=== PATIENT | male | born 1940 | race Caucasian/White ===

== ENCOUNTER 2017-02-26 12:23 | Inpatient (IN) | payer OTHER ==
[~2017-02-26] VITALS: Ht 188 cm; Wt 75.0 kg
[~2017-02-26 12:23] MED LIST: ASPI325T39 PO; ATOR-26 PO; CALC0.2510 PO; GABA-112 PO; HYDR-5688 PO; LEVO75TA PO; LOSA100T65 PO; NTRGSL/4 UT; PRLSR20 PO; SIMV80TA2 PO; SODI650T8 PO
--- NOTE | 2017-02-26 13:06 | EMERGENCY ROOM VISIT NOTE ---
History Report prepared by Jessika: Zohra Feldman Under the Supervision of: Dr. Robert Edmonds M.D. 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 He was walking up short steps and slipped and fell. He landed on the ground and hit his face off of the ground. Daughter states that he had a nosebleed that resolved [employer]. He has been having left shoulder pain and notes that he could not lift his left arm prior to the fall but that the pain has worsened. Movement exacerbates his pain. He describes his pain as "sore" and rates it as a 10/10 in severity. Patient also reports his right wrist has been in pain for 2 days, which is preventing him from gripping his hand. He denies pain in his right hand. He is right hand dominant. The patient is wearing a brace on his left wrist due to arthritis. He was diagnosed with shingles in September that is continuing to cause him pain on the right side of his head. Patient denies LOC, facial pain, jaw pain, neck pain, vision changes, shortness of breath, chest pain, fever, headache, and rash. He denies any recent tick bites. 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 All other systems reviewed were negative unless otherwise stated in history. At least 10 were reviewed Past Medical & Surgical Medical Problems: (1) Fever (2) HLD (hyperlipidemia) (3) HTN (hypertension) (4) Leukocytosis (5) Thyroid disease Social History Smoking Status: Former Smoker Alcohol Use: none Drug Use: none Marital Status: single Housing Status: lives alone Occupation Status: retired Current/Historical Medications Scheduled Aspirin (Aspirin Ec), 81 MG PO DAILY Atorvastatin (Lipitor), 80 MG PO DAILY Calcitriol (Rocaltrol Cap), 0.25 MCG PO DAILY Gabapentin (Neurontin), 100 MG PO TID Levothyroxine Sodium (Synthroid), 75 MCG PO DAILY Losartan Potassium (Cozaar), 100 MG PO DAILY Omeprazole (Prilosec), 20 MG PO DAILY Sodium Bicarbonate (Sodium Bicarbonate), 1 TAB PO TID Scheduled PRN Hydrocodone/Acetaminophen 5MG/325MG ([place] 5MG/325MG), 1 TABLET PO Q6 PRN for Pain Nitroglycerin (Nitrostat), 0.4 MG UT UD PRN for Chest Pain Allergies Coded Allergies: No Known Allergies (Unverified , 07/11/10) Physical Exam Vital Signs Date Time Temp Pulse Resp B/P (MAP) Pulse Ox O2 Delivery O2 Flow Rate FiO2 02/26/17 15:34 80 16 125/80 96 Room Air 02/26/17 14:40 95 Room Air 02/26/17 13:43 37.0 92 16 111/77 95 Room Air 02/26/17 12:28 38.2 68 20 102/55 93 Room Air Physical Exam General: Non-ill appearing older male in no acute distress. HEENT: Normal cephalic atraumatic. Pupils are equal round and reactive to light. Extraocular movements are intact. Oropharynx is pink with moist mucous membranes and full plates. No swelling of the mouth lips or tongue. Neck: Supple with a midline trachea. No meningeal signs or stiffness, no JVD or bruits. No Stridor. Chest: Clear to auscultation bilaterally. No wheezes or rhonchi. No increased work of breathing. Heart: regular rate and rhythm. Abdomen: Soft nontender, nondistended without rebound guarding or rigidity. Extremities: Left shoulder lifts about 90 degrees and stops secondary to pain. Right wrist is tender without redness or warmth. Spine/Back. Non tender to palpation. No CVA tenderness Skin: Good turgor without rashes. Neurologic exam: Cranial nerves two through 12 are intact. Motor and sensation are intact and symmetrical throughout. Medical Decision & Procedures ER Provider Diagnostic Interpretation: Radiology results as stated below per my review and radiologist interpretation: R WRIST MIN 3 VIEWS ROUTINE CLINICAL HISTORY: Right wrist pain status post trauma COMPARISON: None DISCUSSION: No acute fractures are visualized. There are prominent soft tissue calcifications adjacent to the ulna and to a lesser extent the distal radius. There are small cysts/erosions present within the capitate navicular and lunate. There are arterial calcifications present. IMPRESSION: 1. No acute fractures 2. Prominent soft tissue calcifications adjacent to the ulna and distal radius 3. Cysts/erosions within the capitate, navicular, and lunate. Electronically signed by: Homer Gonzalez M.D. 02/26/2017 1:20 PM Dictated Date/Time: 02/26/2017 1:18 PM L SHOULDER MIN 2 VIEWS ROUTINE CLINICAL HISTORY: Left shoulder pain status post trauma COMPARISON: None. DISCUSSION: There are advanced arthritic changes involving the acromioclavicular joint. No acute fractures or subluxations of the proximal left humerus are visualized. IMPRESSION: 1. No acute fractures or subluxations 2. Advanced arthritic changes involving the acromioclavicular joint Electronically signed by: Homer Gonzalez M.D. 02/26/2017 1:18 PM Dictated Date/Time: 02/26/2017 1:[address] HEAD WITHOUT CONTRAST (CT) CLINICAL HISTORY: Head pain status post trauma COMPARISON STUDY: No previous studies for comparison. TECHNIQUE: Axial CT of the brain is performed from the vertex to the skull base. IV contrast was not administered for this examination. A dose lowering technique was utilized adhering to the principles of ALARA. CT DOSE: FINDINGS: No intra or extra-axial mass lesions are visualized. There is no CT evidence of acute cortical infarction. There is no evidence of midline shift. There is no acute hemorrhage. No calvarial fractures are visualized. There are patchy white matter hypodensities likely on a small vessel basis. There is no evidence of pathologic ventricular dilatation. There is no evidence of acute sinusitis IMPRESSION: No acute intracranial findings Electronically signed by: Homer Gonzalez M.D. 02/26/2017 1:45 PM Dictated Date/Time: 02/26/2017 1:44 PM CHEST ONE VIEW PORTABLE CLINICAL HISTORY: Atypical chest pain COMPARISON STUDY: 07/11/2010 FINDINGS: The heart is mildly enlarged. There is aortic tortuosity. There is no failure. There is no focal pulmonary consolidation. There is minor basilar interstitial thickening. Moderate arthritic changes are present within both the chromic clavicular joint.[ IMPRESSION: Cardiomegaly. No evidence of focal pulmonary consolidation. Electronically signed by: Homer Gonzalez M.D. 02/26/2017 1:17 PM Dictated Date/Time: 02/26/2017 1:[address] OF THE CERVICAL SPINE CLINICAL HISTORY: Neck pain status post trauma COMPARISON STUDY: No previous studies for comparison. CT DOSE: 979.12 mGy.cm TECHNIQUE: CT scan of the cervical spine was performed from the skull base to the thoracic inlet. Images are reviewed in the axial, sagittal, and coronal planes. IV contrast was not administered for this examination. A dose lowering technique was utilized adhering to the principles of ALARA. FINDINGS: The visualized portions of the lung apices reveal no evidence of pneumothorax. The prevertebral soft tissues are normal. No fractures or subluxations are visualized. There are advanced multilevel degenerative changes with exuberant anterior osteophytes. There also multilevel posterior osteophytes most pronounced at the C4-5 and C5-6 levels. There is partial fusion of the C5 and C6 vertebra. IMPRESSION: 1. Degenerative changes with exuberant osteophytes 2. No acute fractures or traumatic subluxations identified. Electronically signed by: Homer Gonzalez M.D. 02/26/2017 1:49 PM Dictated Date/Time: 02/26/2017 1:47 PM Laboratory Results 02/26/17 12:55 Red Blood Count 4.76, Mean Corpuscular Volume 87.8, Mean Corpuscular Hemoglobin 30.0, Mean Corpuscular Hemoglobin Concent 34.2, Mean Platelet Volume 9.6, Neutrophils (%) (Auto) 89.4, Lymphocytes (%) (Auto) 4.8, Monocytes (%) (Auto) 5.0, Eosinophils (%) (Auto) 0.1, Basophils (%) (Auto) 0.2, Neutrophils # (Auto) 17.02, Lymphocytes # (Auto) 0.92, Monocytes # (Auto) 0.96, Eosinophils # (Auto) 0.01, Basophils # (Auto) 0.03 02/26/17 12:55 Test 02/26/17 12:55 02/26/17 12:59 02/26/17 14:15 02/26/17 14:45 White Blood Count 19.03 K/uL (4.8-10.8) Red Blood Count 4.76 M/uL (4.7-6.1) Hemoglobin 14.3 g/dL (14.0-18.0) Hematocrit 41.8 % (42-52) Mean Corpuscular Volume 87.8 fL (80-100) Mean Corpuscular Hemoglobin 30.0 pg (25-34) Mean Corpuscular Hemoglobin Concent 34.2 g/dl (32-36) Platelet Count 225 K/uL (130-400) Mean Platelet Volume 9.6 fL (7.4-10.4) Neutrophils (%) (Auto) 89.4 % Lymphocytes (%) (Auto) 4.8 % Monocytes (%) (Auto) 5.0 % Eosinophils (%) (Auto) 0.1 % Basophils (%) (Auto) 0.2 % Neutrophils # (Auto) 17.02 K/uL (1.4-6.5) Lymphocytes # (Auto) 0.92 K/uL (1.2-3.4) Monocytes # (Auto) 0.96 K/uL (0.11-0.59) Eosinophils # (Auto) 0.01 K/uL (0-0.5) Basophils # (Auto) 0.03 K/uL (0-0.2) RDW Standard Deviation 46.1 fL (36.4-46.3) RDW Coefficient of Variation 14.3 % (11.5-14.5) Immature Granulocyte % (Auto) 0.5 % Immature Granulocyte # (Auto) 0.09 K/uL (0.00-0.02) Erythrocyte Sedimentation Rate 63 mm/hr (0-14) Prothrombin Time 13.0 SECONDS (9.0-12.0) Prothromb Time International Ratio 1.2 (0.9-1.1) Activated Partial Thromboplast Time 31.4 SECONDS (21.0-31.0) Partial Thromboplastin Ratio 1.2 Anion Gap 9.0 mmol/L (3-11) Est Creatinine Clear Calc Drug Dose 19.6 ml/min Estimated GFR () 19.7 Estimated GFR (Non- 17.0 BUN/Creatinine Ratio 12.6 (10-20) Uric Acid 4.3 mg/dl (2.6-7.2) Calcium Level 8.7 mg/dl (8.5-10.1) Total Bilirubin 1.6 mg/dl (0.2-1) Direct Bilirubin 0.6 mg/dl (0-0.2) Aspartate Amino Transf (AST/SGOT) 23 U/L (15-37) Alanine Aminotransferase (ALT/SGPT) 32 U/L (12-78) Alkaline Phosphatase 78 U/L (45-117) Total Protein 7.4 gm/dl (6.4-8.2) Albumin 3.0 gm/dl (3.4-5.0) Lipase 93 U/L (73-393) Procalcitonin 1.07 ng/ml (0-0.5) Lyme Disease IgG Antibody NEG (NEG) Lyme Disease IgM Antibody NEG (NEG) Bedside Troponin I < 0.030 ng/ml (0-0.045) Bedside Lactic Acid Venous 0.84 mmol/L (0.90-1.70) Urine Color DK YELLOW Urine Appearance CLEAR (CLEAR) Urine pH 6.0 (4.5-7.5) Urine Specific [place] 1.013 (1.000-1.030) Urine Protein 2+ (NEG) Urine Glucose (UA) NEG (NEG) Urine Ketones NEG (NEG) Urine Occult Blood 3+ (NEG) Urine Nitrite NEG (NEG) Urine Bilirubin NEG (NEG) Urine Urobilinogen POS (NEG) Urine Leukocyte Esterase TRACE (NEG) Urine WBC (Auto) 5-10 /hpf (0-5) Urine RBC (Auto) >30 /hpf (0-4) Urine Hyaline Casts (Auto) 1-5 /lpf (0-5) Urine Epithelial Cells (Auto) >30 /lpf (0-5) Urine Bacteria (Auto) NEG (NEG) Urine Renal Epithelial Cells /lpf (0-5) Laboratory studies as stated above per my review. Medications Administered Medications (Trade) Dose Ordered Sig/Kitty Route Start Time Stop Time Status Last Admin Dose Admin Ondansetron HCl (Zofran Inj) 4 mg NOW STAT IV 02/26/17 13:58 02/26/17 14:00 DC 02/26/17 14:09 4 MG Morphine Sulfate (MoRPHine SULFATE INJ) 2 mg NOW STAT IV 02/26/17 13:58 02/26/17 14:00 DC 02/26/17 14:10 2 MG ECG Indication: back/shoulder pain Rate (beats per minute): 104 Rhythm: sinus tachycardia Findings: RBBB (incomplete), no acute ischemic change Comparison ECG Date: 12/21/06 Change: Non-specific T-wave changes are now present, rate has increased. ED Course 1230: Past medical records reviewed. The patient was evaluated in room B2, and a complete history and physical examination were performed. 1333: The patient is doing well. 1356: The patient is resting comfortably but still complaining of some pain. 1358: Morphine sulfate 2 mg IV, Zofran 4 mg IV 1403: Discussed patient's case with Dr. Mei of the [facility]. The patient will be evaluated for further treatment and disposition. 1408: I reassessed the patient at this time and he is doing well. I discussed the results and treatment plan with the patient and his daughter. I answered all pertaining questions that they had. They expressed understanding and verbalized agreement. Medical Decision Differentials include, but are not limited to; traumatic injuries, orthopedic issues, infection, inflammation. This patient comes in as described above. He suffered what sounds like a mechanical fall. He may have hit his face but he denies any complaints that regard his been having left shoulder pain for couple days and also right wrist pain for week or so. He's also been having ongoing left wrist pain. His doctor tells him his arthritis. He has no new numbness or weakness. He does have pain when he tries to move it and has mildly instructor nurse strength on the right and also with abduction in his shoulder on the left. He has no neck pain acutely. IV access established and blood work was obtained EKG was obtained as well as CAT scan of his head and face to rule out trauma and a x-ray of the left shoulder right wrist were also obtained blood work was obtained as well as. He was reassessed frequently. It was noted that he had a temperature upon arrival but this came down without treatment. He also has a white count 19,000 and this makes you worry about possible infection his joints are not red or warm warm. Lyme titer is pending. He has no other source of infection he's had no cough and chest x-ray was unremarkable. His no urinary symptoms. No headache neck pain or stiffness. He does have renal insufficiency that has been getting worse his creatinine is up to 3.2. He has been on prednisone for his arthritis but has not had it for at least a week or 2 he tells me so that is probably not causing the elevation in white count. I do think he needs to be admitted for further treatment and evaluation. He has nothing to suggest cardiac disease. [facility] will [facility] him for these measures. Medication Reconcilliation Current Medication List: was personally reviewed by me Consults Time Called: 1401 Consulting Physician: Dr. Mei Returned Call: 1403 [facility] The patient will be evaluated for further treatment and disposition. Impression Primary Impression: Myalgia Additional Impressions: Elevated WBC count Fever Scribe Attestation The scribe's documentation has been prepared under my direction and personally reviewed by me in its entirety. I confirm that the note above accurately reflects all work, treatment, procedures, and medical decision making performed by me. Departure Information Dispostion Being Evaluated By Hospitalist Referrals Lucien Morales M.D. (PCP) Patient Instructions My [facility] Problem Qualifiers
[2017-02-26 13:09] LABS: BASO % 0.2 %; BASO ABS # 0.03 K/uL (0-0.2); COMPLETE YES; EOS % 0.1 %; HEMATOCRIT 41.8 % (42-52); IG% 0.5 %; LYMPH % 4.8 %; LYMPH ABS # 0.92 K/uL (1.2-3.4); MEAN CELL VOLUME 87.8 fL (80-100); MEAN CORPUSCULAR HGB CONC 34.2 g/dl (32-36); MEAN PLATELET VOLUME 9.6 fL (7.4-10.4); NEUT % 89.4 %; PLATELET COUNT 225 K/uL (130-400); RED BLOOD COUNT 4.76 M/uL (4.7-6.1); WHITE BLOOD COUNT 19.03 K/uL (4.8-10.8)
--- NOTE | 2017-02-26 13:18 | DIAGNOSTIC IMAGING REPORT ---
CHEST ONE VIEW PORTABLE CLINICAL HISTORY: Atypical chest pain COMPARISON STUDY: 07/11/2010 FINDINGS: The heart is mildly enlarged. There is aortic tortuosity. There is no failure. There is no focal pulmonary consolidation. There is minor basilar interstitial thickening. Moderate arthritic changes are present within both the chromic clavicular joint.[ IMPRESSION: Cardiomegaly. No evidence of focal pulmonary consolidation. Electronically signed by: Homer Gonzalez M.D. 02/26/2017 1:17 PM Dictated Date/Time: 02/26/2017 1:16 PM
--- NOTE | 2017-02-26 13:19 | DIAGNOSTIC IMAGING REPORT ---
L SHOULDER MIN 2 VIEWS ROUTINE CLINICAL HISTORY: Left shoulder pain status post trauma COMPARISON: None. DISCUSSION: There are advanced arthritic changes involving the acromioclavicular joint. No acute fractures or subluxations of the proximal left humerus are visualized. IMPRESSION: 1. No acute fractures or subluxations 2. Advanced arthritic changes involving the acromioclavicular joint Electronically signed by: Homer Gonzalez M.D. 02/26/2017 1:18 PM Dictated Date/Time: 02/26/2017 1:17 PM
[2017-02-26] MEDS ORDERED: ASPI81TA28 PO (13:20)
--- NOTE | 2017-02-26 13:21 | DIAGNOSTIC IMAGING REPORT ---
R WRIST MIN 3 VIEWS ROUTINE CLINICAL HISTORY: Right wrist pain status post trauma COMPARISON: None DISCUSSION: No acute fractures are visualized. There are prominent soft tissue calcifications adjacent to the ulna and to a lesser extent the distal radius. There are small cysts/erosions present within the capitate navicular and lunate. There are arterial calcifications present. IMPRESSION: 1. No acute fractures 2. Prominent soft tissue calcifications adjacent to the ulna and distal radius 3. Cysts/erosions within the capitate, navicular, and lunate. Electronically signed by: Homer Gonzalez M.D. 02/26/2017 1:20 PM Dictated Date/Time: 02/26/2017 1:18 PM
[2017-02-26 13:23] LABS: INR 1.2 (0.9-1.1); PARTIAL THROMBOPLASTIN RATIO 1.2
[2017-02-26 13:26] LABS: BUN/CREATININE RATIO 12.6 (10-20); CALCIUM 8.7 mg/dl (8.5-10.1); CREATININE 3.29 mg/dl (0.60-1.40); POTASSIUM 4.3 mmol/L (3.5-5.1); URIC ACID 4.3 mg/dl (2.6-7.2)
--- NOTE | 2017-02-26 13:47 | DIAGNOSTIC IMAGING REPORT ---
CT HEAD WITHOUT CONTRAST (CT) CLINICAL HISTORY: Head pain status post trauma COMPARISON STUDY: No previous studies for comparison. TECHNIQUE: Axial CT of the brain is performed from the vertex to the skull base. IV contrast was not administered for this examination. A dose lowering technique was utilized adhering to the principles of ALARA. CT DOSE: FINDINGS: No intra or extra-axial mass lesions are visualized. There is no CT evidence of acute cortical infarction. There is no evidence of midline shift. There is no acute hemorrhage. No calvarial fractures are visualized. There are patchy white matter hypodensities likely on a small vessel basis. There is no evidence of pathologic ventricular dilatation. There is no evidence of acute sinusitis IMPRESSION: No acute intracranial findings Electronically signed by: Homer Gonzalez M.D. 02/26/2017 1:45 PM Dictated Date/Time: 02/26/2017 1:44 PM
--- NOTE | 2017-02-26 13:51 | DIAGNOSTIC IMAGING REPORT ---
CT OF THE CERVICAL SPINE CLINICAL HISTORY: Neck pain status post trauma COMPARISON STUDY: No previous studies for comparison. CT DOSE: 979.12 mGy.cm TECHNIQUE: CT scan of the cervical spine was performed from the skull base to the thoracic inlet. Images are reviewed in the axial, sagittal, and coronal planes. IV contrast was not administered for this examination. A dose lowering technique was utilized adhering to the principles of ALARA. FINDINGS: The visualized portions of the lung apices reveal no evidence of pneumothorax. The prevertebral soft tissues are normal. No fractures or subluxations are visualized. There are advanced multilevel degenerative changes with exuberant anterior osteophytes. There also multilevel posterior osteophytes most pronounced at the C4-5 and C5-6 levels. There is partial fusion of the C5 and C6 vertebra. IMPRESSION: 1. Degenerative changes with exuberant osteophytes 2. No acute fractures or traumatic subluxations identified. Electronically signed by: Homer Gonzalez M.D. 02/26/2017 1:49 PM Dictated Date/Time: 02/26/2017 1:47 PM
[2017-02-26] MEDS ORDERED: ONDANSETRON INJ 2 MG/ML 2 ML VIAL IV STA (13:58)
[2017-02-26] MEDS ORDERED: MoRPHine SULFATE 4 MG/ML 1 ML CARP\\VIAL IV STA (13:58)
[2017-02-26 14:08] LABS: LYME DISEASE AB IGG NEG (NEG); LYME DISEASE AB IGM NEG (NEG)
[2017-02-26] MEDS ORDERED: ONDANSETRON INJ 2 MG/ML 2 ML VIAL IV PRN (14:30)
[2017-02-26] MEDS ORDERED: NITROGLYCERIN 0.4 MG SL PER TAB CHARGE SL PRN (14:30)
[2017-02-26] MEDS ORDERED: ZOLPIDEM TARTRATE 5 MG TAB PO PRN (14:30)
[2017-02-26] MEDS ORDERED: ALUMINUM/MAGNESIUM/SIMETH (MAALOX MAX) 30 ML UDC PO PRN (14:30)
[2017-02-26] MEDS ORDERED: MAGNESIUM HYDROXIDE SUSP 30 ML UDC PO PRN (14:30)
[2017-02-26] MEDS ORDERED: SODIUM CHLORIDE 0.9% 1000ML 1,000 ML IV SCH (14:30)
[2017-02-26] MEDS ORDERED: POLYETHYLENE (MIRALAX) 17 GM PACK PO PRN (14:30)
[2017-02-26] MEDS ORDERED: ACETAMINOPHEN 325 MG TAB PO PRN (14:30)
[2017-02-26 14:40] VITALS: O2SAT 95; Ht 188 cm; Wt 75.0 kg
--- NOTE | 2017-02-26 14:55 | History and Physical ---
History & Physical Date & Time of Service: Feb 26, 2017 at 14:55 Chief Complaint: R Hand Stiff, L Shoulder Sore Primary Care Physician: Lucien Morales M.D. History of Present Illness Source: patient This is a 76 yo M with past medical hx of CKD stage 4 , GERD , Hypothyroidism , renal Osteodystrophy, hyperlipidemia , came to ED with pain and swelling of his rt wrist pt sustained a fall earlier at her Daughter's place, mentions he lost balance and fell face forward did not lost consciousness CT head /CT cervical spine -no evidence of fracture or acute change pt had marked tenderness of rt wrist , + swelling . limited wrist and finger movement mentions it started few days back , no hx of trauma also having pain on left shoulder ' Xray of rt wrist and shoulder showed no fracture -advanced arthritic change pt was seen at [facility] clinic 2 weeks back on 02/10/17 for left wrist pain and swelling , he was pushing himself up off a chair and developed severe pain on left wrist Xray of left wrist showed no Fx , no joint fluid effusion , DJD serum uric acid level was wnl pt is ordered for 10 days Prednisone taper started from 02/10/17-02/20/17 in the ER he was found to be febrile Temp 38 , elevated WBC 19 K Past Medical/Surgical History Medical Problems: (1) HLD (hyperlipidemia) Status: Chronic (2) HTN (hypertension) Status: Chronic (3) Thyroid disease Status: Chronic Social History Smoking Status: Former Smoker Drug Use: none Marital Status: single Occupational Status: retired Immunizations History of Influenza Vaccine: Yes Influenza Vaccine Date: Jan 16, 2012 History of Tetanus Vaccine?: Yes Tetanus Immunization Date: Dec 10, 2006 History of Pneumococcal: Yes Pneumococcal Date: Feb 18, 2012 History of Hepatitis B Vaccine: No Allergies Coded Allergies: No Known Allergies (Unverified , 07/11/10) Home Medications Scheduled Aspirin (Aspirin Ec), 81 MG PO DAILY Atorvastatin (Lipitor), 80 MG PO DAILY Calcitriol (Rocaltrol Cap), 0.25 MCG PO DAILY Gabapentin (Neurontin), 100 MG PO TID Levothyroxine Sodium (Synthroid), 75 MCG PO DAILY Losartan Potassium (Cozaar), 100 MG PO DAILY Omeprazole (Prilosec), 20 MG PO DAILY Sodium Bicarbonate (Sodium Bicarbonate), 1 TAB PO TID Scheduled PRN Hydrocodone/Acetaminophen 5MG/325MG ([place] 5MG/325MG), 1 TABLET PO Q6 PRN for Pain Nitroglycerin (Nitrostat), 0.4 MG UT UD PRN for Chest Pain Review of Systems Constitutional: + fever, + chills Eyes: No worsening of vision, No eye pain, No redness, No discharge, No diplopia, No problem reported ENT: No hearing loss, No unusual epistaxis, No nasal symptoms, No sore throat, No tinnitus, No dental problems, No trouble swallowing, No problem reported Respiratory: No cough, No sputum, No wheezing, No shortness of breath, No dyspnea on exertion, No dyspnea at rest, No hemoptysis, No problem reported Cardiovascular: No chest pain, No orthopnea, No PND, No edema, No claudication , No palpitations, No problem reported Abdomen: No pain, No nausea, No vomiting, No diarrhea, No constipation, No GI bleeding, No problem reported Musculoskeletal: + joint pain (rt wrist joint pain , left shoulder joint pain ) Neurologic: No memory loss, No paralysis, No weakness, No numbness/tingling, No vertigo, No balance problems, No problem reported Physical Exam Vital Signs Date Time Temp Pulse Resp B/P (MAP) Pulse Ox O2 Delivery O2 Flow Rate FiO2 02/26/17 13:43 37.0 92 16 111/77 95 Room Air 02/26/17 12:28 38.2 68 20 102/55 93 Room Air General Appearance: no apparent distress Head: normocephalic, atraumatic Eyes: normal inspection, PERRL, EOMI, sclerae normal ENT: pharynx normal Neck: thyroid normal, no carotid bruits, trachea midline Respiratory/Chest: lungs clear, normal breath sounds, no respiratory distress, no accessory muscle use Cardiovascular: regular rate, rhythm, no edema, no gallop, no JVD, no murmur Abdomen/GI: non tender, soft Extremities/Musculoskelatal: + pertinent finding (rt wrist swelling /tender , limited movement due to tendernss , unable to bend his fingers ) Neurologic/Psych: no motor/sensory deficits, alert, normal mood/affect, oriented x 3 Diagnostics Laboratory Results Results Past 24 Hours Test 02/26/17 12:55 02/26/17 12:59 02/26/17 14:15 Range/Units White Blood Count 19.03 4.8-10.8 K/uL Red Blood Count 4.76 4.7-6.1 M/uL Hemoglobin 14.3 14.0-18.0 g/dL Hematocrit 41.8 42-52 % Mean Corpuscular Volume 87.8 80-100 fL Mean Corpuscular Hemoglobin 30.0 25-34 pg Mean Corpuscular Hemoglobin Concent 34.2 32-36 g/dl Platelet Count 225 130-400 K/uL Mean Platelet Volume 9.6 7.4-10.4 fL Neutrophils (%) (Auto) 89.4 % Lymphocytes (%) (Auto) 4.8 % Monocytes (%) (Auto) 5.0 % Eosinophils (%) (Auto) 0.1 % Basophils (%) (Auto) 0.2 % Neutrophils # (Auto) 17.02 1.4-6.5 K/uL Lymphocytes # (Auto) 0.92 1.2-3.4 K/uL Monocytes # (Auto) 0.96 0.11-0.59 K/uL Eosinophils # (Auto) 0.01 0-0.5 K/uL Basophils # (Auto) 0.03 0-0.2 K/uL RDW Standard Deviation 46.1 36.4-46.3 fL RDW Coefficient of Variation 14.3 11.5-14.5 % Immature Granulocyte % (Auto) 0.5 % Immature Granulocyte # (Auto) 0.09 0.00-0.02 K/uL Erythrocyte Sedimentation Rate 63 0-14 mm/hr Prothrombin Time 13.0 9.0-12.0 SECONDS Prothromb Time International Ratio 1.2 0.9-1.1 Activated Partial Thromboplast Time 31.4 21.0-31.0 SECONDS Partial Thromboplastin Ratio 1.2 Sodium Level 135 136-145 mmol/L Potassium Level 4.3 3.5-5.1 mmol/L Chloride Level 102 98-107 mmol/L Carbon Dioxide Level 24 21-32 mmol/L Anion Gap 9.0 3-11 mmol/L Blood Urea Nitrogen 41 7-18 mg/dl Creatinine 3.29 0.60-1.40 mg/dl Est Creatinine Clear Calc Drug Dose 19.6 ml/min Estimated GFR () 19.7 Estimated GFR (Non- 17.0 BUN/Creatinine Ratio 12.6 10-20 Random Glucose 136 70-99 mg/dl Uric Acid 4.3 2.6-7.2 mg/dl Calcium Level 8.7 8.5-10.1 mg/dl Total Bilirubin 1.6 0.2-1 mg/dl Direct Bilirubin 0.6 0-0.2 mg/dl Aspartate Amino Transf (AST/SGOT) 23 15-37 U/L Alanine Aminotransferase (ALT/SGPT) 32 12-78 U/L Alkaline Phosphatase 78 45-117 U/L Total Protein 7.4 6.4-8.2 gm/dl Albumin 3.0 3.4-5.0 gm/dl Lipase 93 73-393 U/L Lyme Disease IgG Antibody NEG NEG Lyme Disease IgM Antibody NEG NEG Bedside Troponin I < 0.030 0-0.045 ng/ml Bedside Lactic Acid Venous 0.84 0.90-1.70 mmol/L Microbiology Results 02/26/17 Blood Culture, Received Pending 02/26/17 Blood Culture, Received Pending Diagnostic Radiology RT WRIST XRAY 3 VIEW : IMPRESSION: 1. No acute fractures 2. Prominent soft tissue calcifications adjacent to the ulna and distal radius 3. Cysts/erosions within the capitate, navicular, and lunate. XRAY OF SHOULDER: IMPRESSION: 1. No acute fractures or subluxations 2. Advanced arthritic changes involving the acromioclavicular joint CT HEAD WITH OUT CONTRAST : No intra or extra-axial mass lesions are visualized. There is no CT evidence of acute cortical infarction. There is no evidence of midline shift. There is no acute hemorrhage. No calvarial fractures are visualized. There are patchy white matter hypo densities likely on a small vessel basis. There is no evidence of pathologic ventricular dilatation. There is no evidence of acute sinusitis IMPRESSION: No acute intracranial findings CHEST XRAY ONE VIEW PORTABLE : IMPRESSION: Cardiomegaly. No evidence of focal pulmonary consolidation. CT OF CERVICAL SPINE IMPRESSION: 1. Degenerative changes with exuberant osteophytes 2. No acute fractures or traumatic subluxations identified. Impression Assessment and Plan FEVER /LEUKOCYTOSIS : no obvious source of infection noted no complain of cough , no pneumonia in chest xray presents with right wrist pain and swelling -clinical presentation mostly resembles acute gout Xray of rt wrist : Prominent soft tissue calcifications adjacent to the ulna and distal radius does not explain the fever or markedly elevated white count no evidence of sepsis -stable vital , normal lactic acid , mild elevation of Procalcitonin ordered for blood culture empiric Abx with Vancomycin and Cefepime ID eval requested , appreciate input RIGHT WRIST PAIN /SWELLING : possible acute gouty arthritis ? unable to give NSAID for advanced CKD stage 4 recently treated with 10 days prednisone taper pt also mentions of feeling very stiff in morning generalized joint ache and pain for past few weeks pain of swelling on knee or ankle joints -noted Lyme titer negative ordered for VINH , RF factor negative < 1: 10 ; ESR elevated 63 Rheumatology consulted TIFF ON CKD STAGE 4 : follows with nephrology Oncu -requested consult baseline cr 3.1 mild elevation 3.2 hold Losartan repeat PRP in AM , avoid NSAIDS ordered for gentle IV hydration RENAL OSTEODYSTROPHY : on Rocaltrol Na Bicarbonate 650 mg TID GERD : on PPI HYPOTHYROIDISM : cont Levothyroxine 75 mcg daily HYPERLIPIDEMIA : on Lipitor 80 mg daily FULL CODE DVT PROPHYLAXIS : Sub q heparin DISPOSITION ; expected to be discharged home when medially stable Medicine follow up with Dr Morales Level of Care Med/Surg Resuscitation Status FULL RESUSCITATION VTE Prophylaxis VTE Risk Assessment Done? Y/N: Yes Risk Level: Moderate Given or contraindicated: Unfractionated heparin SQ Additional Copies To Lucien Morales M.D.
[2017-02-26 15:13] LABS: URINE APPEARANCE CLEAR (CLEAR); URINE BILIRUBIN NEG (NEG); URINE COLOR DK YELLOW; URINE EPITHELIAL CELL AUTO >30 /lpf (0-5); URINE NITRITE NEG (NEG); URINE SPECIFIC GRAVITY 1.013 (1.000-1.030); UROBILINOGEN POS (NEG)
[2017-02-26 15:23] LABS: MANUAL MICROSCOPIC REQUIRED? NO; REVIEW REQ? YES
[2017-02-26] MEDS ORDERED: VANCOMYCIN INJ 2,000 MG in SODIUM CHLORIDE 0.9% 500ML 500 ML IV ONE (16:00)
[2017-02-26] MEDS ORDERED: MoRPHine SULFATE 2 MG/ML CARP IV STA (16:01)
[2017-02-26] MEDS ORDERED: VANCOMYCIN CONSULT ACTIVE PRN (16:15)
[2017-02-26] MEDS ORDERED: MoRPHine SULFATE 2 MG/ML CARP IV PRN (16:15)
--- NOTE | 2017-02-26 16:17 | Pharmacy Progress Note ---
Pharmacy Abx Initial Consult Date of Service Feb 26, 2017. Pharmacy Dosing Scope Date of Consult: 02/26/17 Consultation requested by: Dr. Mei Pharmacy is consulted to initiate Vancomycin IV dosing therapy, order appropriate labs and adjust drug dose/frequency. Subjective The patient is a 76 year old male admitted on Feb 26, 2017 at 14:24 with left shoulder pain, ruling out bone/joint infection. Objective Height (Feet): 6 Height (Inches): 2.00 Weight (Kilograms): 75.000 Vital Signs (Past 12Hrs) Vital Signs Past 12 Hours Date Time Temp Pulse Resp B/P (MAP) Pulse Ox O2 Delivery O2 Flow Rate FiO2 02/26/17 15:34 80 16 125/80 96 Room Air 02/26/17 14:40 95 Room Air 02/26/17 13:43 37.0 92 16 111/77 95 Room Air 02/26/17 12:28 38.2 68 20 102/55 93 Room Air Lab Results (24Hrs) Test 02/26/17 12:55 02/26/17 12:59 02/26/17 14:15 02/26/17 14:45 White Blood Count 19.03 Red Blood Count 4.76 Hemoglobin 14.3 Hematocrit 41.8 Mean Corpuscular Volume 87.8 Mean Corpuscular Hemoglobin 30.0 Mean Corpuscular Hemoglobin Concent 34.2 Platelet Count 225 Mean Platelet Volume 9.6 Neutrophils (%) (Auto) 89.4 Lymphocytes (%) (Auto) 4.8 Monocytes (%) (Auto) 5.0 Eosinophils (%) (Auto) 0.1 Basophils (%) (Auto) 0.2 Neutrophils # (Auto) 17.02 Lymphocytes # (Auto) 0.92 Monocytes # (Auto) 0.96 Eosinophils # (Auto) 0.01 Basophils # (Auto) 0.03 RDW Standard Deviation 46.1 RDW Coefficient of Variation 14.3 Immature Granulocyte % (Auto) 0.5 Immature Granulocyte # (Auto) 0.09 Erythrocyte Sedimentation Rate 63 Prothrombin Time 13.0 Prothrombin Time INR 1.2 PTT 31.4 Partial Thromboplastin Ratio 1.2 Sodium Level 135 Potassium Level 4.3 Chloride Level 102 Carbon Dioxide Level 24 Anion Gap 9.0 Blood Urea Nitrogen 41 Creatinine 3.29 Est Creatinine Clear Calc Drug Dose 19.6 Estimated GFR () 19.7 Estimated GFR (Non- 17.0 BUN/Creatinine Ratio 12.6 Random Glucose 136 Uric Acid 4.3 Calcium Level 8.7 Total Bilirubin 1.6 Direct Bilirubin 0.6 Aspartate Amino Transferase (AST) 23 Alanine Aminotransferase (ALT) 32 Alkaline Phosphatase 78 Total Protein 7.4 Albumin 3.0 Lipase 93 Procalcitonin 1.07 Lyme Disease IgG Antibody NEG Lyme Disease IgM Antibody NEG POC Troponin I < 0.030 POC Lactic Acid Venous 0.84 Urine Color DK YELLOW Urine Appearance CLEAR Urine pH 6.0 Urine Specific [place] 1.013 Urine Protein 2+ Urine Glucose (UA) NEG Urine Ketones NEG Urine Occult Blood 3+ Urine Nitrite NEG Urine Bilirubin NEG Urine Urobilinogen POS Urine Leukocyte Esterase TRACE Urine WBC (Auto) 5-10 Urine RBC (Auto) >30 Urine Hyaline Casts (Auto) 1-5 Urine Epithelial Cells (Auto) >30 Urine Bacteria (Auto) NEG Urine Renal Epithelial Cells Micro Results Date/Time Source Procedure Growth Status 02/26/17 14:10 Blood Blood Culture Pending Received 02/26/17 14:06 Blood Blood Culture Pending Received 02/26/17 14:45 Urine , Clean Catch Urine Culture Pending Received Assessment & Plan Assessment 76 year old male admitted with left shoulder pain, starting on IV antibiotics for possible bone/joint infection. Poor renal function. SCr = 3.29mg/dl, no other labs available to determine patient's baseline. Plan IV Vancomycin and Cefepime and for treatment of possible bone/joint infection of right shoulder. Vancomycin IV * Loading dose: 2000 mg (26 mg/kg) x 1 now at 1630 * Goal trough level for bone/joint infection : 15 to 20 mcg/mL * Random level ordered for 02/27/17 with AM labs * Dosing patient empirically at this time due to poor renal function at this time. Pharmacy will continue to follow and will adjust dose/frequency as necessary. Thank you.
[2017-02-26 16:45] VITALS: BP 130/75; PULSE 87; TEMP 36.9; O2SAT 95; O2SAT 96
[2017-02-26] MEDS: CEFEPIME IV 500 MG in SYRINGE 0 ML IV SCH (17:03)
--- NOTE | 2017-02-26 17:42 | Medical Consult ---
Consultation Date of Consultation: Feb 26, 2017. Attending Physician: Gerson Martins MD Reason for Consultation: Fever, leukocytosis History of Present Illness 76-year-old male with history of hypothyroidism, hyperlipidemia, hypertension, and stage 4 chronic kidney disease, who was in usual state of health until a few weeks ago when he noted onset of left wrist pain, associated with generalized myalgias and arthralgias, and but possibly he was coming down with the flu. He was seen in the emergency room earlier this month for wrist pain, and was sent home with anti-inflammatories. Of note was findings of possible erosive changes in the bones of the hand. He now has developed pain in his right wrist and left shoulder, and suffered fall today and was brought to the emergency room. X-rays were negative for fractures, but patient was found to have significant leukocytosis with sed rate of 63 and was admitted for further management. He has been started empirically on vancomycin and cefepime. Cultures are pending. He has not had any respiratory complaints, gastrointestinal complaints, or urinary symptoms. No rash. No significant travel or exposure history. No obvious tick exposure. Past Medical/Surgical History Medical Problems: (1) Abnormal x-ray Status: Acute (2) Arthritis pain of wrist Status: Acute (3) Elevated WBC count Status: Acute (4) Myalgia Status: Acute (5) Wrist pain, left Status: Acute Medical Problems: (1) Fever (2) HLD (hyperlipidemia) (3) HTN (hypertension) (4) Leukocytosis (5) Thyroid disease Family History Mother with rheumatoid arthritis Social History Smoking Status: Former Smoker Drug Use: none Marital Status: single Housing Status: lives alone Occupation Status: retired Allergies Coded Allergies: No Known Allergies (Unverified , 07/11/10) Current Inpatient Medications Current Inpatient Medications Medications (Trade) Dose Ordered Sig/Kitty Route Start Time Stop Time Status Last Admin Dose Admin Sodium Chloride 1,000 ml @ 100 mls/hr Q10H IV 02/26/17 14:30 02/27/17 00:29 02/26/17 16:20 100 MLS/HR Heparin Sodium (Porcine) (Heparin Sq 5000 Unit/0.5ml) 5,000 unit Q8 SQ 02/26/17 22:00 03/28/17 21:59 Acetaminophen (Tylenol Tab) 650 mg Q4H PRN PO 02/26/17 14:30 03/28/17 14:29 Al Hydrox/Mg Hydrox/Simethicone (Maalox Max Susp) 15 ml Q4H PRN PO 02/26/17 14:30 03/28/17 14:29 Magnesium Hydroxide (Milk Of Magnesia Susp) 30 ml Q12H PRN PO 02/26/17 14:30 03/28/17 14:29 Zolpidem Tartrate (Ambien Tab) 5 mg HSZ PRN PO 02/26/17 14:30 03/28/17 14:29 Ondansetron HCl (Zofran Inj) 4 mg Q6H PRN IV 02/26/17 14:30 03/28/17 14:29 Nitroglycerin (Nitrostat Tab) 0.4 mg UD PRN SL 02/26/17 14:30 03/28/17 14:29 Polyethylene (Miralax Powder Packet) 17 gm DAILY PRN PO 02/26/17 14:30 03/28/17 14:29 Aspirin (Ecotrin Tab) 81 mg DAILY PO 02/27/17 09:00 03/29/17 08:59 Atorvastatin Calcium (Lipitor Tab) 80 mg DAILY PO 02/27/17 09:00 03/29/17 08:59 Calcitriol (Rocaltrol Cap) 0.25 mcg DAILY PO 02/27/17 09:00 03/29/17 08:59 Gabapentin (Neurontin Cap) 100 mg TID PO 02/26/17 21:00 03/28/17 20:59 Acetaminophen/ Hydrocodone Bitart ([place] 5/325 Tab) 1 tab Q6 PRN PO 02/26/17 14:30 03/12/17 14:29 Levothyroxine Sodium (Synthroid Tab) 75 mcg DAILYBB PO 02/27/17 06:00 03/29/17 05:59 Sodium Bicarbonate (Sodium Bicarbonate Tab) 650 mg TID PO 02/26/17 21:00 03/28/17 20:59 Pantoprazole Sodium (Protonix Tab) 40 mg DAILY PO 02/27/17 09:00 03/29/17 08:59 Vancomycin HCl 2000 mg/Sodium Chloride 540 ml @ 200 mls/hr TODAY@1630 ONCE IV 02/26/17 16:00 02/26/17 18:41 02/26/17 17:03 200 MLS/HR Cefepime HCl 500 mg/Syringe 5.5 ml @ 5.5 mls/min Q12H IV 02/26/17 16:00 04/09/17 15:59 02/26/17 17:03 5.5 MLS/MIN Morphine Sulfate (MoRPHine SULFATE INJ) 1 mg Q4H PRN IV 02/26/17 16:15 03/12/17 16:14 Vancomycin HCl (Consult) 1 ea UD PRN N/A 02/26/17 16:15 03/28/17 16:14 Review of Systems Constitutional: + fever, + weakness, + fatigue Eyes: No problem reported ENT: No problem reported Respiratory: No problem reported Cardiovascular: No problem reported Abdomen: No problem reported Musculoskeletal: + joint pain, + muscle pain, + swelling Genitourinary - Male: No problem reported Neurologic: No problem reported Psychiatric: No problem reported Endocrine: No problem reported Hematologic / Lymphatic: No problem reported Integumentary: No rash Allergic / Immunologic: No problem reported Physical Exam Date Time Temp Pulse Resp B/P (MAP) Pulse Ox O2 Delivery O2 Flow Rate FiO2 02/26/17 15:34 80 16 125/80 96 Room Air 02/26/17 14:40 95 Room Air 02/26/17 13:43 37.0 92 16 111/77 95 Room Air 02/26/17 12:28 38.2 68 20 102/55 93 Room Air General Appearance: WD/WN, no apparent distress Head: normocephalic, atraumatic Eyes: normal inspection, EOMI, sclerae normal ENT: normal ENT inspection, hearing grossly normal, pharynx normal Neck: supple, no adenopathy, thyroid normal, trachea midline Respiratory/Chest: chest non-tender, lungs clear, normal breath sounds, no respiratory distress Cardiovascular: regular rate, rhythm, no gallop, no murmur Abdomen/GI: normal bowel sounds, non tender, soft, no organomegaly Back: normal inspection, no CVA tenderness Extremities/Musculoskelatal: no calf tenderness, normal capillary refill, + pertinent finding (Swollen left and right wrists and hands) Neurologic/Psych: alert, normal mood/affect, oriented x 3 Skin: normal color, warm/dry, no rash Lymphatic: no adenopathy Laboratory Results Date/Time Source Procedure Growth Status 02/26/17 14:10 Blood Blood Culture Pending Received 02/26/17 14:06 Blood Blood Culture Pending Received 02/26/17 14:45 Urine , Clean Catch Urine Culture Pending Received Last 24 Hours Test 02/26/17 12:55 02/26/17 12:59 02/26/17 14:15 02/26/17 14:45 White Blood Count 19.03 K/uL Red Blood Count 4.76 M/uL Hemoglobin 14.3 g/dL Hematocrit 41.8 % Mean Corpuscular Volume 87.8 fL Mean Corpuscular Hemoglobin 30.0 pg Mean Corpuscular Hemoglobin Concent 34.2 g/dl Platelet Count 225 K/uL Mean Platelet Volume 9.6 fL Neutrophils (%) (Auto) 89.4 % Lymphocytes (%) (Auto) 4.8 % Monocytes (%) (Auto) 5.0 % Eosinophils (%) (Auto) 0.1 % Basophils (%) (Auto) 0.2 % Neutrophils # (Auto) 17.02 K/uL Lymphocytes # (Auto) 0.92 K/uL Monocytes # (Auto) 0.96 K/uL Eosinophils # (Auto) 0.01 K/uL Basophils # (Auto) 0.03 K/uL RDW Standard Deviation 46.1 fL RDW Coefficient of Variation 14.3 % Immature Granulocyte % (Auto) 0.5 % Immature Granulocyte # (Auto) 0.09 K/uL Erythrocyte Sedimentation Rate 63 mm/hr Prothrombin Time 13.0 SECONDS Prothromb Time International Ratio 1.2 Activated Partial Thromboplast Time 31.4 SECONDS Partial Thromboplastin Ratio 1.2 Sodium Level 135 mmol/L Potassium Level 4.3 mmol/L Chloride Level 102 mmol/L Carbon Dioxide Level 24 mmol/L Anion Gap 9.0 mmol/L Blood Urea Nitrogen 41 mg/dl Creatinine 3.29 mg/dl Est Creatinine Clear Calc Drug Dose 19.6 ml/min Estimated GFR () 19.7 Estimated GFR (Non- 17.0 BUN/Creatinine Ratio 12.6 Random Glucose 136 mg/dl Uric Acid 4.3 mg/dl Calcium Level 8.7 mg/dl Total Bilirubin 1.6 mg/dl Direct Bilirubin 0.6 mg/dl Aspartate Amino Transf (AST/SGOT) 23 U/L Alanine Aminotransferase (ALT/SGPT) 32 U/L Alkaline Phosphatase 78 U/L Total Protein 7.4 gm/dl Albumin 3.0 gm/dl Lipase 93 U/L Procalcitonin 1.07 ng/ml Lyme Disease IgG Antibody NEG Lyme Disease IgM Antibody NEG Bedside Troponin I < 0.030 ng/ml Bedside Lactic Acid Venous 0.84 mmol/L Urine Color DK YELLOW Urine Appearance CLEAR Urine pH 6.0 Urine Specific [place] 1.013 Urine Protein 2+ Urine Glucose (UA) NEG Urine Ketones NEG Urine Occult Blood 3+ Urine Nitrite NEG Urine Bilirubin NEG Urine Urobilinogen POS Urine Leukocyte Esterase TRACE Urine WBC (Auto) 5-10 /hpf Urine RBC (Auto) >30 /hpf Urine Hyaline Casts (Auto) 1-5 /lpf Urine Epithelial Cells (Auto) >30 /lpf Urine Bacteria (Auto) NEG Urine Renal Epithelial Cells /lpf Patient Name: YADIRA GIBSON Unit Number: [id number] Dictated: 02/26/171317 Transcribed: 02/26/171317 ARG Printed Date/Time: [~ rep prt dt]/[~ rep prt tm] [~ rep ct labl] - [~ rep ct ivnm] [facility] Radiology Department [place], [place] [id number] Dictated: 02/26/171317 Transcribed: 02/26/171317 ARG Printed Date/Time: [~ rep prt dt]/[~ rep prt tm] [~ rep ct labl] - [~ rep ct ivnm] [~ rep ct add3]] R WRIST MIN 3 VIEWS ROUTINE CLINICAL HISTORY: Right wrist pain status post trauma COMPARISON: None DISCUSSION: No acute fractures are visualized. There are prominent soft tissue calcifications adjacent to the ulna and to a lesser extent the distal radius. There are small cysts/erosions present within the capitate navicular and lunate. There are arterial calcifications present. IMPRESSION: 1. No acute fractures 2. Prominent soft tissue calcifications adjacent to the ulna and distal radius 3. Cysts/erosions within the capitate, navicular, and lunate. Electronically signed by: Homer Gonzalez M.D. 02/26/2017 1:20 PM Dictated Date/Time: 02/26/2017 1:18 PM The status of this report is Signed. Draft = Not yet reviewed or approved by Radiologist. Signed = Reviewed and approved by Radiologist. <AttendingPhy></AttendingPhy> <FamilyPhy>Lucien Morales M.D.</FamilyPhy> < PrimaryPhy>Lucien Morales M.D.</PrimaryPhy> <UnitNumber>[id number]</UnitNumber > <VisitNumber>[id number]</VisitNumber> <PatientName>YADIRA GIBSON</ PatientName> <DateOfBirth>1940</DateOfBirth> <Location>[facility]</Location> < ServiceDate>02/26/17</ServiceDate> <MNE>ESINDI</MNE> <OrderingPhy>Robert Edmonds M.D.</OrderingPhy> <OrderingPhyMNE>f rep ord dr lo</OrderingPhyMNE> < DictatingPhyMNE>f rep dict dr lo</DictatingPhyMNE> <CCListMNE>f rep ct edytae</ CCListMNE> <AdmittingPhyMNE>f pt admit dr lo</AdmittingPhyMNE> <AttendingPhyMNE >f pt attend dr lo</AttendingPhyMNE> <ConsultingPhyMNE>f pt consult dr lo</ConsultingPhyMNE> <FamilyPhyMNE>f pt fam dr lo</FamilyPhyMNE> <OtherPhyMNE>f pt other dr lo</OtherPhyMNE> < PrimaryPhyMNE>f pt prim care dr lo</PrimaryPhyMNE> <ReferringPhyMNE>f pt referring dr ol</ReferringPhyMNE> Assessment & Plan 76-year-old male with recent onset of shoulder and wrist pain and swelling, fever and leukocytosis with elevated sed rate. Wonder about possibility of inflammatory arthropathy such as gout given severity of pain and x-ray findings. Agree with need to rule out bacteremic seeding, and would continue antibiotics pending blood culture results. Await further rheumatologic studies , would also consider protein electrophoresis to evaluate unlikely possibility of myeloma. Will follow.
[2017-02-26] MEDS ORDERED: PNEUMOCOCCAL ADMINISTRATION CHARGE ONE (20:15)
[2017-02-26] MEDS ORDERED: PNEUMOCOCCAL POLYSACCHARIDES 25 MCG/0.5 ML VIAL/SYR IM. ONE (20:15)
[2017-02-26 20:28] VITALS: BP 122/74; PULSE 76; TEMP 36.8; O2SAT 96
[2017-02-26] MEDS: GABAPENTIN 100 MG CAP PO SCH (20:38)
[2017-02-26] MEDS: SODIUM BICARBONATE 650 MG TAB PO SCH (20:38)
[2017-02-26] MEDS: HEPARIN SOD 5000 UNIT/0.5 ML CARP SQ SCH (20:40)
[2017-02-26] MEDS: HYDROCODONE/ACETAMOPHEN 5/325MG TAB PO PRN (23:14)
[2017-02-26 23:22] VITALS: BP 114/68; PULSE 71; TEMP 36.5; O2SAT 93
[2017-02-27] MEDS: CEFEPIME IV 500 MG in SYRINGE 0 ML IV SCH ×2 (05:11→15:23)
[2017-02-27] MEDS: HEPARIN SOD 5000 UNIT/0.5 ML CARP SQ SCH ×3 (05:13→20:45)
[2017-02-27] MEDS: LEVOTHYROXINE 75 MCG TAB PO SCH (05:15)
[2017-02-27 06:03] LABS: HEMATOCRIT 35.7 % (42-52); MEAN CELL VOLUME 88.4 fL (80-100); MEAN CORPUSCULAR HEMOGLOBIN 29.2 pg (25-34); MEAN CORPUSCULAR HGB CONC 33.1 g/dl (32-36); MEAN PLATELET VOLUME 9.8 fL (7.4-10.4); PLATELET COUNT 207 K/uL (130-400); RED BLOOD COUNT 4.04 M/uL (4.7-6.1); WHITE BLOOD COUNT 8.93 K/uL (4.8-10.8)
[2017-02-27 06:31] LABS: BUN/CREATININE RATIO 16.9 (10-20); CALCIUM 7.7 mg/dl (8.5-10.1); MAGNESIUM 1.3 mg/dl (1.8-2.4); POTASSIUM 3.6 mmol/L (3.5-5.1)
[2017-02-27] MEDS ORDERED: MoRPHine SULFATE 4 MG/ML 1 ML CARP\\VIAL IV PRN (07:30)
[2017-02-27 07:33] VITALS: BP 138/89; PULSE 80; TEMP 36.4; O2SAT 95
[2017-02-27 08:00] VITALS: O2SAT 95
[2017-02-27] MEDS: ASPIRIN 81 MG ECTAB PO SCH (08:09)
[2017-02-27] MEDS: ATORVASTATIN 40 MG TAB PO SCH (08:10)
[2017-02-27] MEDS: CALCITRIOL 0.25 MCG CAP PO SCH (08:11)
[2017-02-27] MEDS: PANTOprazole SOD 40 MG TAB PO SCH (08:11)
--- NOTE | 2017-02-27 08:11 | Rheumatology Consultation ---
Rheumatology Consultation Date of Consultation: Feb 27, 2017. 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 He has underlying CKD stage 4, HTN, hypothyroidism. He reports that he was leaving [facility] after purchasing some meals, slipped on the stairs and fell forward hitting his head. His daughter wanted him to be checked out at the ED. while in the ED he was noted to have elevated WBC, low grade fever and he reported ongoing right wrist and left shoulder pain over the last 2 days. He was admitted with concern of infection. He was seen by Dr Odom and started on abx. Inpatient notes and labs reviewed. It was noted his ESR was at 62. He reports that in the beginning of February he developed acute onset left wrist pain and swelling (his right hand is behaving the same way) - he saw Dr Morales several days into it and given steroids that worked very well. a few days after stopping prednisone he developed acute onset right wrist pain/swelling. he cannot close his hand to make a fist. his pain is a 10. he cannot really hold anything in his right hand. He also cannot lift his left shoulder up without pain. he has not experienced anything like this before. He had x rays in the ED of the wrist and shoulder. shoulder showed advanced AC arthritis. Wrist x ray showed some erosions but most prominent was calcific changes to the radius and ulna. he does not recall any recent injury to the wrist or significant past injuries. He has never had gout before and his uric at PCP office and here were <5. No family history of gout or RA. His Lyme and RF were negative. reports his mother likely had some arthritis. He was given some morphine this am that is not helping much. He has not had any more temps. no steroids yet. His GFR was at 17 last night; his WBC is better today. Past Medical/Surgical History Medical History: hypertension, hypothyroidism, osteoarthritis, renal disease Family History No family history of Gout, RA mom had arthritis Social History Smoking Status: Former Smoker History of Alcohol Use: No Drug Use: none Marital Status: single Occupation Status: retired Review of Systems Constitutional: + fever, + weakness Respiratory: No cough, No shortness of breath Cardiac: No chest pain Abdomen: No pain, No nausea Musculoskeletal: + see HPI Allergies Coded Allergies: No Known Allergies (Unverified , 07/11/10) Medications Current Inpatient Medications Medications (Trade) Dose Ordered Sig/Kitty Route Start Time Stop Time Status Last Admin Dose Admin Heparin Sodium (Porcine) (Heparin Sq 5000 Unit/0.5ml) 5,000 unit Q8 SQ 02/26/17 22:00 03/28/17 21:59 02/26/17 20:40 5,000 UNIT Acetaminophen (Tylenol Tab) 650 mg Q4H PRN PO 02/26/17 14:30 03/28/17 14:29 Al Hydrox/Mg Hydrox/Simethicone (Maalox Max Susp) 15 ml Q4H PRN PO 02/26/17 14:30 03/28/17 14:29 Magnesium Hydroxide (Milk Of Magnesia Susp) 30 ml Q12H PRN PO 02/26/17 14:30 03/28/17 14:29 Zolpidem Tartrate (Ambien Tab) 5 mg HSZ PRN PO 02/26/17 14:30 03/28/17 14:29 Ondansetron HCl (Zofran Inj) 4 mg Q6H PRN IV 02/26/17 14:30 03/28/17 14:29 Nitroglycerin (Nitrostat Tab) 0.4 mg UD PRN SL 02/26/17 14:30 03/28/17 14:29 Polyethylene (Miralax Powder Packet) 17 gm DAILY PRN PO 02/26/17 14:30 03/28/17 14:29 Aspirin (Ecotrin Tab) 81 mg DAILY PO 02/27/17 09:00 03/29/17 08:59 Atorvastatin Calcium (Lipitor Tab) 80 mg DAILY PO 02/27/17 09:00 03/29/17 08:59 Calcitriol (Rocaltrol Cap) 0.25 mcg DAILY PO 02/27/17 09:00 03/29/17 08:59 Gabapentin (Neurontin Cap) 100 mg TID PO 02/26/17 21:00 03/28/17 20:59 02/26/17 20:38 100 MG Acetaminophen/ Hydrocodone Bitart ([place] 5/325 Tab) 1 tab Q6 PRN PO 02/26/17 14:30 03/12/17 14:29 02/26/17 23:14 1 TAB Levothyroxine Sodium (Synthroid Tab) 75 mcg DAILYBB PO 02/27/17 06:00 03/29/17 05:59 02/27/17 05:15 75 MCG Sodium Bicarbonate (Sodium Bicarbonate Tab) 650 mg TID PO 02/26/17 21:00 03/28/17 20:59 02/26/17 20:38 650 MG Pantoprazole Sodium (Protonix Tab) 40 mg DAILY PO 02/27/17 09:00 03/29/17 08:59 Cefepime HCl 500 mg/Syringe 5.5 ml @ 5.5 mls/min Q12H IV 02/26/17 16:00 04/09/17 15:59 02/27/17 05:11 5.5 MLS/MIN Morphine Sulfate (MoRPHine SULFATE INJ) 1 mg Q4H PRN IV 02/26/17 16:15 03/12/17 16:14 02/27/17 05:24 1 MG Vancomycin HCl (Consult) 1 ea UD PRN N/A 02/26/17 16:15 03/28/17 16:14 Physical Exam Date Time Temp Pulse Resp B/P (MAP) Pulse Ox O2 Delivery O2 Flow Rate FiO2 02/27/17 00:00 Room Air 02/26/17 23:22 36.5 71 16 114/68 (83) 93 Room Air 02/26/17 20:28 36.8 76 18 122/74 (90) 96 02/26/17 16:45 96 Room Air 02/26/17 16:45 36.9 87 20 130/75 (93) 95 Room Air 02/26/17 15:34 80 16 125/80 96 Room Air 02/26/17 14:40 95 Room Air 02/26/17 13:43 37.0 92 16 111/77 95 Room Air 02/26/17 12:28 38.2 68 20 102/55 93 Room Air General Appearance: WD/WN, + mild distress (because of pain) Respiratory: chest non-tender, lungs clear, normal breath sounds Cardiovascular: regular rate, rhythm, no edema, no gallop Abdomen: normal bowel sounds, non tender, soft 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 trace synovitis right wrist + pain with palpation right wrist limited ROM of left shoulder because of pain no gouty tophi no pain at the MCPs right hand Skin: normal color, warm/dry, no rash Laboratory Results Last 24 Hours Test 02/26/17 12:55 02/26/17 12:59 02/26/17 14:15 02/26/17 14:45 White Blood Count 19.03 K/uL Red Blood Count 4.76 M/uL Hemoglobin 14.3 g/dL Hematocrit 41.8 % Mean Corpuscular Volume 87.8 fL Mean Corpuscular Hemoglobin 30.0 pg Mean Corpuscular Hemoglobin Concent 34.2 g/dl Platelet Count 225 K/uL Mean Platelet Volume 9.6 fL Neutrophils (%) (Auto) 89.4 % Lymphocytes (%) (Auto) 4.8 % Monocytes (%) (Auto) 5.0 % Eosinophils (%) (Auto) 0.1 % Basophils (%) (Auto) 0.2 % Neutrophils # (Auto) 17.02 K/uL Lymphocytes # (Auto) 0.92 K/uL Monocytes # (Auto) 0.96 K/uL Eosinophils # (Auto) 0.01 K/uL Basophils # (Auto) 0.03 K/uL RDW Standard Deviation 46.1 fL RDW Coefficient of Variation 14.3 % Immature Granulocyte % (Auto) 0.5 % Immature Granulocyte # (Auto) 0.09 K/uL Erythrocyte Sedimentation Rate 63 mm/hr Prothrombin Time 13.0 SECONDS Prothromb Time International Ratio 1.2 Activated Partial Thromboplast Time 31.4 SECONDS Partial Thromboplastin Ratio 1.2 Sodium Level 135 mmol/L Potassium Level 4.3 mmol/L Chloride Level 102 mmol/L Carbon Dioxide Level 24 mmol/L Anion Gap 9.0 mmol/L Blood Urea Nitrogen 41 mg/dl Creatinine 3.29 mg/dl Est Creatinine Clear Calc Drug Dose 19.6 ml/min Estimated GFR () 19.7 Estimated GFR (Non- 17.0 BUN/Creatinine Ratio 12.6 Random Glucose 136 mg/dl Uric Acid 4.3 mg/dl Calcium Level 8.7 mg/dl Total Bilirubin 1.6 mg/dl Direct Bilirubin 0.6 mg/dl Aspartate Amino Transf (AST/SGOT) 23 U/L Alanine Aminotransferase (ALT/SGPT) 32 U/L Alkaline Phosphatase 78 U/L Total Protein 7.4 gm/dl Albumin 3.0 gm/dl Lipase 93 U/L Procalcitonin 1.07 ng/ml Lyme Disease IgG Antibody NEG Lyme Disease IgM Antibody NEG Bedside Troponin I < 0.030 ng/ml Bedside Lactic Acid Venous 0.84 mmol/L Urine Color DK YELLOW Urine Appearance CLEAR Urine pH 6.0 Urine Specific Harold 1.013 Urine Protein 2+ Urine Glucose (UA) NEG Urine Ketones NEG Urine Occult Blood 3+ Urine Nitrite NEG Urine Bilirubin NEG Urine Urobilinogen POS Urine Leukocyte Esterase TRACE Urine WBC (Auto) 5-10 /hpf Urine RBC (Auto) >30 /hpf Urine Hyaline Casts (Auto) 1-5 /lpf Urine Epithelial Cells (Auto) >30 /lpf Urine Bacteria (Auto) NEG Urine Renal Epithelial Cells /lpf Test 02/26/17 19:34 02/27/17 05:19 Rheumatoid Factor < 10.0 U/mL White Blood Count 8.93 K/uL Red Blood Count 4.04 M/uL Hemoglobin 11.8 g/dL Hematocrit 35.7 % Mean Corpuscular Volume 88.4 fL Mean Corpuscular Hemoglobin 29.2 pg Mean Corpuscular Hemoglobin Concent 33.1 g/dl RDW Standard Deviation 46.4 fL RDW Coefficient of Variation 14.3 % Platelet Count 207 K/uL Mean Platelet Volume 9.8 fL Sodium Level 138 mmol/L Potassium Level 3.6 mmol/L Chloride Level 106 mmol/L Carbon Dioxide Level 24 mmol/L Anion Gap 8.0 mmol/L Blood Urea Nitrogen 51 mg/dl Creatinine 3.00 mg/dl Est Creatinine Clear Calc Drug Dose 21.5 ml/min Estimated GFR () 22.0 Estimated GFR (Non- 19.0 BUN/Creatinine Ratio 16.9 Random Glucose 89 mg/dl Calcium Level 7.7 mg/dl Magnesium Level 1.3 mg/dl Random Vancomycin Level 15.7 mcg/ml Assessment & Plan Assessment & Plan: Assessment: Sandor is a 76 y/o male who presented with acute onset right wrist pain/swelling, left shoulder pain in the setting of CKD stage 4. previous episode in left wrist a few weeks back.X rays of right wrist shows calcific changes to the right wrist with erosions/arthritis. I would favor pseudogout over gout in his case. I doubt infection. 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 I would treat today with one dose of IV medrol then do prednisone taper. Case discussed with hospitalist Dr Martins. Plan: 1. IV medrol 40mg x 1 today 2. starting tomorrow pred taper - 40mg for 3 days, 30mg daily for 3 days, 20mg daily for 3 days, 10mg daily for 3 days then 5mg daily for 3 days then stop 3. I will arrange outpatient rheumatology follow up 4. Thank you for the consult and involving me in this patient's care 5. from my standpoint patient can be discharged home after IV medrol
[2017-02-27] MEDS: HYDROCODONE/ACETAMOPHEN 5/325MG TAB PO PRN (08:12)
[2017-02-27] MEDS: SODIUM BICARBONATE 650 MG TAB PO SCH ×3 (08:13→20:31)
[2017-02-27] MEDS ORDERED: VANCOMYCIN INJ 1,000 MG in SODIUM CHLORIDE 0.9% 250ML 250 ML IV SCH (09:00)
[2017-02-27] MEDS: GABAPENTIN 100 MG CAP PO SCH ×3 (09:00→20:31)
[2017-02-27] MEDS: MAGNESIUM SULFATE 1GM / D5W 1 GM in PREMIXED IN D5W 100 ML IV SCH ×2 (09:58→10:52)
[2017-02-27] MEDS ORDERED: METHYLPREDNISOLONE IV 40 MG in SYRINGE 0 ML IV SCH (10:45)
[2017-02-27 11:52] VITALS: BP 133/82; PULSE 73; O2SAT 96
--- NOTE | 2017-02-27 12:26 | NEPHROLOGY CONSULTATION ---
DATE OF CONSULTATION: 02/27/2017 REASON FOR CONSULT: Acute renal failure on background chronic kidney disease 4. HISTORY OF PRESENT ILLNESS: The patient is a 76-year-old male with past medical history of chronic kidney disease stage 4 with a baseline creatinine of around 3, follows with Dr. Martinez, hypothyroidism, renal osteodystrophy, who presented to the Emergency Department with a chief complaint of pain and swelling of his right wrist. He recently had a fall at his daughter's place. At the time of the evaluation, the patient had marked tenderness of his right wrist as well as swelling and some redness. X-ray did not show any fracture, but it was showing advanced arthritic exchanges. Since admission, he has been seen by rheumatology as well as infectious disease and he is currently getting IV steroid as well as prednisone taper and he is also getting antibiotics as his white cell count was elevated at the time of admission. At this time, blood cultures reports are pending. He is getting IV vancomycin. As per the renal standpoint, the patient's creatinine was 3.29 on admission yesterday, which is very slightly elevated from his baseline. He got some IV fluids overnight. This morning, creatinine is down to 3.00. He is hemodynamically stable with a blood pressure of 138/89 and he is otherwise not having any urinary issues. His magnesium is low at 1.3 and he is getting IV magnesium even as an outpatient. Since admission, losartan, which he normally takes at 100 mg daily at home has been held. REVIEW OF SYSTEMS: Positive for fever, chills, redness, pain and tenderness and swelling in his right wrist, otherwise 14 systems reviewed and negative. ALLERGIES: None. SOCIAL HISTORY: He is a former smoker. He is single. He is retired. PAST MEDICAL HISTORY: Chronic kidney disease stage 4 with a baseline creatinine of around 4, hyperlipidemia, hypertension. HOME MEDICATIONS: Reviewed in detail and includes aspirin, Lipitor, calcitriol, Neurontin, Synthroid, losartan 100, Prilosec 20 daily, and sodium bicarbonate 650 mg 1 tablet 3 times a day. FAMILY HISTORY: Negative for renal disease or dialysis. PHYSICAL EXAMINATION: GENERAL: Elderly white male who does not appear to be in any distress at this time. He is awake, alert, oriented x3. Normal speech. HEENT: Mucous membranes moist. NECK: Supple. No jugular venous distention. CARDIOVASCULAR: Regular rate and rhythm, no rub, gallop or murmur. LUNGS: Bilateral clear to auscultation. No respiratory distress. ABDOMEN: Soft, nontender. Costovertebral angle not tender. EXTREMITIES: Right wrist is swollen and tender and very limited movement, unable to make a fist. NEUROLOGIC: Awake, alert, oriented x3, moving all 4 extremities. Normal speech. Denies any focal weakness or numbness. SKIN: No rashes noted other than some slight redness around his right wrist. LABORATORY TESTS: At the time of admission, sodium 135, potassium 4.3, BUN 41, creatinine 3.29, magnesium 1.3. WBC count 19,000, platelet count 225. This morning, labs showed some improvement with a white cell count now down to 9000 and creatinine is now 3.00, BUN 51. Chest x-ray shows some cardiomegaly, otherwise unremarkable. ASSESSMENT AND PLAN: A 76-year-old male with chronic kidney disease stage 4 with a baseline creatinine of around 3 now presenting with acute onset of swelling, pain and tenderness of his right wrist which appears to be inflammatory. He is getting treatment for that with steroids as well as antibiotics. Both rheumatology and infectious disease are involved in the case. As for the renal standpoint, things are pretty stable. His creatinine was very mildly elevated at 3.3 at the time of presentation in the setting of acute infection, fever and possibly some hemodynamic issues; however, creatinine is now back to baseline of 3. He is eating and drinking fairly normal. Continue gentle hydration, maybe till tomorrow, but he is not volume depleted in a true sense. Given acute infection and use of vancomycin. I agree with holding the losartan for the time being; however, this can be restarted within few days once his symptoms are controlled. If we decide to continue with the vancomycin, dosing needs to be adjusted very carefully. Continue daily labs. MTDD
[2017-02-27 15:00] VITALS: BP 146/54; PULSE 58; TEMP 36.2; O2SAT 98
[2017-02-27 15:30] VITALS: BP 126/86; PULSE 82; TEMP 36.6; O2SAT 95
[2017-02-27 16:13] VITALS: BP 149/53; PULSE 62; TEMP 36.6; O2SAT 99
--- NOTE | 2017-02-27 17:56 | Progress Note ---
Internal Med Progress Note Date of Service: Feb 27, 2017. Provider Documentation: SUBJECTIVE: pain in his right wrist and left shoulder improving afebrile today no sob or cough wants to go home OBJECTIVE: Vital Signs-as noted below Exam: General-alert and oriented. Not in distress ENT-Normal hearing Neck-no neck masses Lungs-CTA b/l no wheezing or crackles Heart-S1 and S2 heard. Regular rate and rhythm, no murmurs Abdomen-Soft Bowel sounds present no tenderness present no distension Extremities right wrist and left shoulder tender and decreased range of motions Neuro-alert and awake moves extremities Lab data as noted below. ASSESSMENT & PLAN: FEVER /LEUKOCYTOSIS : no obvious source of infection noted HAd fever or elevated white count on presentation no evidence of sepsis -stable vital , normal lactic acid , mild elevation of Procalcitonin On empiric Abx with Vancomycin and Cefepime ID consulted and appreciate input Mostly acute Gout. Started on steroids Await cx RIGHT WRIST PAIN /SWELLING : Mostly acute gouty arthritis ? unable to give NSAID for advanced CKD stage 4 recently treated with 10 days prednisone taper ESR elevated 63 Seen by Rheumatology and started on steroids improving. TIFF ON CKD STAGE 4 : follows with nephrology [facility] -requested consult baseline cr 3.1 presented with 3.2 holding Losartan on gentle fluids cr 3.0 today appreciate nephrology inputs RENAL OSTEODYSTROPHY : on Rocaltrol Na Bicarbonate 650 mg TID GERD : on PPI HYPOTHYROIDISM : cont Levothyroxine 75 mcg daily HYPERLIPIDEMIA : on Lipitor 80 mg daily FULL CODE DVT PROPHYLAXIS : Sub q heparin DISPOSITION ; possible d/c home in am Medicine follow up with Dr Morales Ambulate in hallways Vital Signs: Date Time Temp Pulse Resp B/P (MAP) Pulse Ox O2 Delivery O2 Flow Rate FiO2 02/27/17 16:13 36.6 62 18 149/53 (85) 99 Room Air 02/27/17 16:00 Room Air 02/27/17 15:30 36.6 82 18 126/86 (99) 95 Room Air 02/27/17 15:00 36.2 58 16 146/54 (84) 98 Room Air 02/27/17 11:52 73 96 02/27/17 08:00 95 Room Air 02/27/17 07:33 36.4 80 20 138/89 (105) 95 02/27/17 00:00 Room Air 02/26/17 23:22 36.5 71 16 114/68 (83) 93 Room Air 02/26/17 20:28 36.8 76 18 122/74 (90) 96 Lab Results: Results Past 24 Hours Test 02/26/17 19:34 02/27/17 05:19 02/27/17 09:24 Range/Units Rheumatoid Factor < 10.0 0-15 U/mL White Blood Count 8.93 4.8-10.8 K/uL Red Blood Count 4.04 4.7-6.1 M/uL Hemoglobin 11.8 14.0-18.0 g/dL Hematocrit 35.7 42-52 % Mean Corpuscular Volume 88.4 80-100 fL Mean Corpuscular Hemoglobin 29.2 25-34 pg Mean Corpuscular Hemoglobin Concent 33.1 32-36 g/dl RDW Standard Deviation 46.4 36.4-46.3 fL RDW Coefficient of Variation 14.3 11.5-14.5 % Platelet Count 207 130-400 K/uL Mean Platelet Volume 9.8 7.4-10.4 fL Sodium Level 138 136-145 mmol/L Potassium Level 3.6 3.5-5.1 mmol/L Chloride Level 106 98-107 mmol/L Carbon Dioxide Level 24 21-32 mmol/L Anion Gap 8.0 3-11 mmol/L Blood Urea Nitrogen 51 7-18 mg/dl Creatinine 3.00 0.60-1.40 mg/dl Est Creatinine Clear Calc Drug Dose 21.5 ml/min Estimated GFR () 22.0 Estimated GFR (Non- 19.0 BUN/Creatinine Ratio 16.9 10-20 Random Glucose 89 70-99 mg/dl Calcium Level 7.7 8.5-10.1 mg/dl Magnesium Level 1.3 1.8-2.4 mg/dl Random Vancomycin Level 15.7 mcg/ml Microbiology Results 02/26/17 MRSA DNA Surveillance Screen - Final, Complete Specimen Negative for MRSA by DNA Probe
[2017-02-27] MEDS: MAGNESIUM CHLORIDE 64MG DELAYED REL TAB PO SCH (20:31)
--- NOTE | 2017-02-27 22:22 | Pharmacy Progress Note ---
Pharmacy Abx Dose Short Note Date of Service Feb 27, 2017. Assessment & Plan Assessment 76 year old male admitted with left shoulder pain, starting on IV antibiotics for possible bone/joint infection. Poor renal function. SCr stable, but >=3.0 mg/dL Vancomycin goal trough 15-20 mcg/mL Trough of 15.7 mcg/mL obtained this AM is therapeutic OK to give more vancomycin, but will only give one-time dose then check another random tomorrow AM Plan IV Vancomycin and Cefepime and for treatment of possible bone/joint infection of right shoulder. Vancomycin IV * 1000 mg IV x1 administered this AM * Random level with 02/28 AM labs Pharmacy will continue to follow and will adjust dose/frequency as necessary. Thank you.
[2017-02-28 00:25] VITALS: BP 132/76; PULSE 65; TEMP 36.7; O2SAT 94
[2017-02-28] MEDS: CEFEPIME IV 500 MG in SYRINGE 0 ML IV SCH (04:41)
[2017-02-28 05:46] LABS: HEMATOCRIT 35.7 % (42-52); MEAN CELL VOLUME 87.5 fL (80-100); MEAN CORPUSCULAR HEMOGLOBIN 28.9 pg (25-34); MEAN CORPUSCULAR HGB CONC 33.1 g/dl (32-36); MEAN PLATELET VOLUME 9.3 fL (7.4-10.4); PLATELET COUNT 210 K/uL (130-400); RED BLOOD COUNT 4.08 M/uL (4.7-6.1)
[2017-02-28] MEDS: LEVOTHYROXINE 75 MCG TAB PO SCH (05:59)
[2017-02-28] MEDS: HEPARIN SOD 5000 UNIT/0.5 ML CARP SQ SCH ×2 (06:01→13:20)
[2017-02-28 06:13] LABS: BUN/CREATININE RATIO 18.3 (10-20); CALCIUM 8.3 mg/dl (8.5-10.1); CREATININE 3.18 mg/dl (0.60-1.40); MAGNESIUM 1.9 mg/dl (1.8-2.4); POTASSIUM 4.4 mmol/L (3.5-5.1)
[2017-02-28 07:35] VITALS: BP 141/84; PULSE 51; TEMP 36.3; O2SAT 95
[2017-02-28] MEDS: GABAPENTIN 100 MG CAP PO SCH ×2 (08:21→13:19)
[2017-02-28] MEDS: ATORVASTATIN 40 MG TAB PO SCH (08:21)
[2017-02-28] MEDS: SODIUM BICARBONATE 650 MG TAB PO SCH ×2 (08:22→13:19)
[2017-02-28] MEDS: CALCITRIOL 0.25 MCG CAP PO SCH (08:22)
[2017-02-28] MEDS: ASPIRIN 81 MG ECTAB PO SCH (08:22)
[2017-02-28] MEDS: PANTOprazole SOD 40 MG TAB PO SCH (08:23)
[2017-02-28] MEDS: MAGNESIUM CHLORIDE 64MG DELAYED REL TAB PO SCH (08:23)
--- NOTE | 2017-02-28 08:31 | Pharmacy Progress Note ---
Pharmacy Antibiotic Prog Note Date of Service Feb 28, 2017. Subjective The patient is currently receiving vancomycin prn levels The patient is currently on day # 3 of vancomycin IV therapy. Objective Height (Feet): 6 Height (Inches): 2.00 Weight (Kilograms): 75.000 Lab Results (24hrs): Test 02/27/17 09:24 02/28/17 05:27 White Blood Count 9.40 K/uL (4.8-10.8) Red Blood Count 4.08 M/uL (4.7-6.1) Hemoglobin 11.8 g/dL (14.0-18.0) Hematocrit 35.7 % (42-52) Mean Corpuscular Volume 87.5 fL (80-100) Mean Corpuscular Hemoglobin 28.9 pg (25-34) Mean Corpuscular Hemoglobin Concent 33.1 g/dl (32-36) RDW Standard Deviation 44.8 fL (36.4-46.3) RDW Coefficient of Variation 14.0 % (11.5-14.5) Platelet Count 210 K/uL (130-400) Mean Platelet Volume 9.3 fL (7.4-10.4) Sodium Level 138 mmol/L (136-145) Potassium Level 4.4 mmol/L (3.5-5.1) Chloride Level 108 mmol/L (98-107) Carbon Dioxide Level 24 mmol/L (21-32) Anion Gap 7.0 mmol/L (3-11) Blood Urea Nitrogen 58 mg/dl (7-18) Creatinine 3.18 mg/dl (0.60-1.40) Est Creatinine Clear Calc Drug Dose 20.3 ml/min Estimated GFR () 20.5 Estimated GFR (Non- 17.7 BUN/Creatinine Ratio 18.3 (10-20) Random Glucose 113 mg/dl (70-99) Calcium Level 8.3 mg/dl (8.5-10.1) Magnesium Level 1.9 mg/dl (1.8-2.4) Random Vancomycin Level 16.0 mcg/ml Assessment & Plan Assessment * 76 yo M admitted with shoulder/wrist pain/swelling, likely 2nd either inflammatory arthropathy or bone/joint infection * ID following - recommended continuing cefepime, vancomycin pending blood culture results * Blood cultures obtained 2 days ago currently with no growth to date * Patient is currently afebrile with normal WBC * Hx CKD IV. SCr currently stable at 3.0-3.3 mg/dL x3 days * Vancomycin * Goal vancomycin trough 15-20 mcg/mL * Random level of 16.0 mcg/mL this AM therapeutic and stable from yesterday after receiving 1000 mg IV about 24 hours prior * Despite significant renal dysfunction, OK to schedule vancomycin because renal function is stable * Will continue with vancomycin 1000 mg IV q24h * Will obtain early trough (prior to 3rd dose) 2nd possibility for accumulation 2nd renal dysfunction Plan * Vancomycin 1000 mg IV q24h * Trough 03/02 @ 0830 * Consider discontinuing antibiotics soon as blood cultures show no growth and vancomycin may contribute to further nephrotoxicity Pharmacy will continue to follow and will adjust dose/frequency as necessary. Thank you
[2017-02-28] MEDS ORDERED: VANCOMYCIN INJ 1,000 MG in SODIUM CHLORIDE 0.9% 250ML 250 ML IV SCH (09:00)
[2017-02-28 12:07] VITALS: BP 141/84; PULSE 51; TEMP 36.3; O2SAT 95
[2017-02-28] MEDS ORDERED: PRED10TA PO (12:21)
--- NOTE | 2017-02-28 12:27 | Discharge Instructions ---
Discharge Instructions Date of Service Feb 28, 2017. Admission Reason for Admission: Fever, Leukocytosis Discharge Discharge Diagnosis / Problem: ACUTE GOUTY ARTHRITIS Discharge Goals Goal(s): Decrease discomfort, Improve function Activity Recommendations Activity Limitations: resume your previous activity . Instructions / Follow-Up Instructions / Follow-Up FOLLOWUP WITH FAMILY DOCTOR ON Feb AT 11:05AM. HOLD LOSARTAN FOR COUPLE OF DAYS AND RESUME USUAL HOME DOSE. FOLLOWUP WITH RHEUMATOLOGY SCHEDULED Current Hospital Diet Patient's current hospital diet: AHA Diet (Heart Healthy), Renal Diet Discharge Diet Recommended Diet: AHA Diet (Heart Healthy), Renal Diet Pending Studies Studies pending at discharge: no Medical Emergencies . Who to Call and When: Medical Emergencies: If at any time you feel your situation is an emergency, please call 911 immediately. . Non-Emergent Contact Non-Emergency issues call your: Primary Care Provider . . "Provider Documentation" section prepared by Gerson Martins. . VTE Core Measure Inpt VTE Proph given/why not?: Unfractionated heparin SQ
--- NOTE | 2017-02-28 18:29 | Progress Note ---
Internal Med Progress Note Date of Service: Feb 28, 2017. Provider Documentation: SUBJECTIVE: pain in his right wrist and left shoulder much improved afebrile no sob or cough wants to be discharged OBJECTIVE: Vital Signs-as noted below Exam: General-alert and oriented. Not in distress ENT-Normal hearing Neck-no neck masses Lungs-CTA b/l no wheezing or crackles Heart-S1 and S2 heard. Regular rate and rhythm, no murmurs Abdomen-Soft Bowel sounds present no tenderness present no distension Extremities right wrist and left shoulder tender and decreased range of motions- improving Neuro-alert and awake moves extremities Lab data as noted below. ASSESSMENT & PLAN: FEVER /LEUKOCYTOSIS : no obvious source of infection noted HAd fever or elevated white count on presentation no evidence of sepsis -stable vital , normal lactic acid , mild elevation of Procalcitonin On empiric Abx with Vancomycin and Cefepime ID consulted and appreciate input Mostly acute Gout. Started on steroids cx no growth discharged on prednisone taper f/u with rheumatology RIGHT WRIST PAIN /SWELLING : Mostly acute gouty arthritis ? unable to give NSAID for advanced CKD stage 4 recently treated with 10 days prednisone taper ESR elevated 63 Seen by Rheumatology and started on steroids improving. needs f/u TIFF ON CKD STAGE 4 : follows with nephrology DR Martinez -requested consult baseline cr 3.1 presented with 3.2 holding Losartan on gentle fluids Cr 3.1 today appreciate nephrology inputs RENAL OSTEODYSTROPHY : on Rocaltrol Na Bicarbonate 650 mg TID GERD : on PPI HYPOTHYROIDISM : cont Levothyroxine 75 mcg daily HYPERLIPIDEMIA : on Lipitor 80 mg daily discharged home today Vital Signs: Date Time Temp Pulse Resp B/P (MAP) Pulse Ox O2 Delivery O2 Flow Rate FiO2 02/28/17 12:07 36.3 51 18 95 Room Air 02/28/17 08:00 Room Air 02/28/17 07:35 36.3 51 18 141/84 (103) 95 Room Air 02/28/17 00:25 36.7 65 20 132/76 (94) 94 Room Air 02/28/17 00:00 Room Air Lab Results: Results Past 24 Hours Test 02/28/17 05:27 Range/Units White Blood Count 9.40 4.8-10.8 K/uL Red Blood Count 4.08 4.7-6.1 M/uL Hemoglobin 11.8 14.0-18.0 g/dL Hematocrit 35.7 42-52 % Mean Corpuscular Volume 87.5 80-100 fL Mean Corpuscular Hemoglobin 28.9 25-34 pg Mean Corpuscular Hemoglobin Concent 33.1 32-36 g/dl RDW Standard Deviation 44.8 36.4-46.3 fL RDW Coefficient of Variation 14.0 11.5-14.5 % Platelet Count 210 130-400 K/uL Mean Platelet Volume 9.3 7.4-10.4 fL Sodium Level 138 136-145 mmol/L Potassium Level 4.4 3.5-5.1 mmol/L Chloride Level 108 98-107 mmol/L Carbon Dioxide Level 24 21-32 mmol/L Anion Gap 7.0 3-11 mmol/L Blood Urea Nitrogen 58 7-18 mg/dl Creatinine 3.18 0.60-1.40 mg/dl Est Creatinine Clear Calc Drug Dose 20.3 ml/min Estimated GFR () 20.5 Estimated GFR (Non- 17.7 BUN/Creatinine Ratio 18.3 10-20 Random Glucose 113 70-99 mg/dl Calcium Level 8.3 8.5-10.1 mg/dl Magnesium Level 1.9 1.8-2.4 mg/dl Random Vancomycin Level 16.0 mcg/ml
--- NOTE | 2017-02-28 18:32 | Discharge Summary ---
Discharge Summary Date of Service Feb 28, 2017. Discharge Summary Admission Date: Feb 26, 2017 at 14:24 Discharge Date: Feb 28, 2017 Discharge Disposition: Home Principal Diagnosis: ACUTE GOUTY ARTHRITIS Secondary Diagnoses/Problems: (1) HLD (hyperlipidemia) Status: Chronic (2) HTN (hypertension) Status: Chronic (3) Thyroid disease Status: Chronic Procedures: RIGHT WRIST XRAY: 1. No acute fractures 2. Prominent soft tissue calcifications adjacent to the ulna and distal radius 3. Cysts/erosions within the capitate, navicular, and lunate. LEFT SHOULDER XRAY: 1. No acute fractures or subluxations 2. Advanced arthritic changes involving the acromioclavicular joint CT HEAD: No acute intracranial findings CXR: Cardiomegaly. No evidence of focal pulmonary consolidation. CERVICAL SPINE CT: 1. Degenerative changes with exuberant osteophytes 2. No acute fractures or traumatic subluxations identified. Consultations: ID RHEUMATOLOGY Medication Reconciliation New Medications: Prednisone Tab (Prednisone) 10 Mg Tab 40 MG PO UD, #32 TAB PREDNISONE 40MG PO DAILY X 3 DAYS THEN PREDNISONE 30MG PO DAILY X 3 DAYS THEN PREDNISONE 20MG PO DAILY X 3 DAYS THEN PREDNISONE 10MG PO DAILY X 3 DAYS THEN PREDNISONE 5MG PO DAILY X 3 DAYS THEN STOP. Continued Medications: Aspirin (Aspirin Ec) 81 Mg Tab 81 MG PO DAILY Atorvastatin (Lipitor) 80 Mg Tab 80 MG PO DAILY, TAB Calcitriol (Rocaltrol Cap) 0.25 Mcg Cap 0.25 MCG PO DAILY, CAP Gabapentin (Neurontin) 100 Mg Cap 100 MG PO TID, CAP Hydrocodone/Acetaminophen 5MG/325MG ([place] 5MG/325MG) Tab 1 TABLET PO Q6 PRN for Pain, #10 TAB Levothyroxine Sodium (Synthroid) 75 Mcg Tab 75 MCG PO DAILY, TAB Losartan Potassium (Cozaar) 100 Mg Tab 100 MG PO DAILY, TAB Nitroglycerin (Nitrostat) 0.4 Mg Tab 0.4 MG UT UD PRN for Chest Pain, 0 Refills Omeprazole (Prilosec) 20 Mg Capcr 20 MG PO DAILY, 0 Refills Sodium Bicarbonate (Sodium Bicarbonate) 650 Mg Tab 1 TAB PO TID Admission Information HPI (per Admitting provider): This is a 76 yo M with past medical hx of CKD stage 4 , GERD , Hypothyroidism , renal Osteodystrophy, hyperlipidemia , came to ED with pain and swelling of his rt wrist pt sustained a fall earlier at her Daughter's place, mentions he lost balance and fell face forward did not lost consciousness CT head /CT cervical spine -no evidence of fracture or acute change pt had marked tenderness of rt wrist , + swelling . limited wrist and finger movement mentions it started few days back , no hx of trauma also having pain on left shoulder ' Xray of rt wrist and shoulder showed no fracture -advanced arthritic change pt was seen at [facility] 2 weeks back on 02/10/17 for left wrist pain and swelling , he was pushing himself up off a chair and developed severe pain on left wrist Xray of left wrist showed no Fx , no joint fluid effusion , DJD serum uric acid level was wnl pt is ordered for 10 days Prednisone taper started from 02/10/17-02/20/17 in the ER he was found to be febrile Temp 38 , elevated WBC 19 K Physical Exam (per Admitting): General Appearance: no apparent distress Head: normocephalic, atraumatic Eyes: normal inspection, PERRL, EOMI, sclerae normal ENT: pharynx normal Neck: thyroid normal, no carotid bruits, trachea midline Respiratory/Chest: lungs clear, normal breath sounds, no respiratory distress, no accessory muscle use Cardiovascular: regular rate, rhythm, no edema, no gallop, no JVD, no murmur Abdomen/GI: non tender, soft Extremities/Musculoskelatal: + pertinent finding (rt wrist swelling /tender , limited movement due to tendernss , unable to bend his fingers ) Neurologic/Psych: no motor/sensory deficits, alert, normal mood/affect, oriented x 3 Hospital Course FEVER /LEUKOCYTOSIS : no obvious source of infection noted HAd fever or elevated white count on presentation no evidence of sepsis -stable vital , normal lactic acid , mild elevation of Procalcitonin On empiric Abx with Vancomycin and Cefepime ID consulted and appreciate input Mostly acute Gout. Started on steroids cx no growth discharged on prednisone taper f/u with rheumatology RIGHT WRIST PAIN /SWELLING : Mostly acute gouty arthritis ? unable to give NSAID for advanced CKD stage 4 recently treated with 10 days prednisone taper ESR elevated 63 Seen by Rheumatology and started on steroids improving. needs f/u TIFF ON CKD STAGE 4 : follows with nephrology DR Oncu -requested consult baseline cr 3.1 presented with 3.2 holding Losartan on gentle fluids Cr 3.1 today appreciate nephrology inputs RENAL OSTEODYSTROPHY : on Rocaltrol Na Bicarbonate 650 mg TID GERD : on PPI HYPOTHYROIDISM : cont Levothyroxine 75 mcg daily HYPERLIPIDEMIA : on Lipitor 80 mg daily discharged home today Total time spent on discharge = 35MINUTES This includes examination of the patient, discharge planning, medication reconciliation, and communication with other providers. Discharge Instructions Discharge Instructions Date of Service Feb 28, 2017. Admission Reason for Admission: Fever, Leukocytosis Discharge Discharge Diagnosis / Problem: ACUTE GOUTY ARTHRITIS Discharge Goals Goal(s): Decrease discomfort, Improve function Activity Recommendations Activity Limitations: resume your previous activity . Instructions / Follow-Up Instructions / Follow-Up FOLLOWUP WITH FAMILY DOCTOR ON Feb AT 11:05AM. HOLD LOSARTAN FOR COUPLE OF DAYS AND RESUME USUAL HOME DOSE. FOLLOWUP WITH RHEUMATOLOGY SCHEDULED Current Hospital Diet Patient's current hospital diet: AHA Diet (Heart Healthy), Renal Diet Discharge Diet Recommended Diet: AHA Diet (Heart Healthy), Renal Diet Pending Studies Studies pending at discharge: no Medical Emergencies . Who to Call and When: Medical Emergencies: If at any time you feel your situation is an emergency, please call 911 immediately. . Non-Emergent Contact Non-Emergency issues call your: Primary Care Provider . . "Provider Documentation" section prepared by Gerson Martins. . VTE Core Measure Inpt VTE Proph given/why not?: Unfractionated heparin SQ
[2017-03-02] MEDS ORDERED: VANCOMYCIN TROUGH ONE (08:30)
[2017-03-02 17:11] LABS: ALBUMIN 2.4 G/DL (3.8-4.8); GAMMA GLOBULIN 0.6 G/DL (0.8-1.7)
== END 2017-02-28 13:15 | disposition home or self-care (01) | DRG 554 ==
LOC: C.EDB 12:24 → C.2E 14:24 → ENRESERV 14:37 → C.MED 19:30
PROVIDERS: ADMIT Hospitalist; ATTEND Internal Medicine
DX: M10.9 Gout, unspecified (principal); N18.4 Chronic kidney disease, stage 4 (severe); N17.9 Acute kidney failure, unspecified; K21.9 Gastro-esophageal reflux disease without esophagitis; E03.9 Hypothyroidism, unspecified; Q78.9 Osteochondrodysplasia, unspecified; E78.5 Hyperlipidemia, unspecified; Z87.891 Personal history of nicotine dependence; R50.9 Fever, unspecified; D72.829 Elevated white blood cell count, unspecified; Z79.82 Long term (current) use of aspirin; N25.0 Renal osteodystrophy

== ENCOUNTER 2017-03-01 13:32 | Emergency (ER) | payer OTHER ==
[~2017-03-01] VITALS: Ht 188 cm; Wt 89.2 kg
[~2017-03-01 13:32] MED LIST changes: -ASPI325T39 PO; +ASPI81TA28 PO; +PRED10TA PO; -SIMV80TA2 PO
[2017-03-01 13:38] VITALS: TEMP 36.5; Ht 188 cm; Wt 89.2 kg
[2017-03-01 14:36] LABS: BASO % 0.2 %; BASO ABS # 0.02 K/uL (0-0.2); COMPLETE YES; EOS % 0.2 %; HEMATOCRIT 38.8 % (42-52); IG% 0.4 %; LYMPH % 7.9 %; LYMPH ABS # 0.65 K/uL (1.2-3.4); MEAN CELL VOLUME 87.2 fL (80-100); MEAN CORPUSCULAR HEMOGLOBIN 29.2 pg (25-34); MEAN CORPUSCULAR HGB CONC 33.5 g/dl (32-36); MEAN PLATELET VOLUME 9.2 fL (7.4-10.4); MONO % 6.6 %; NEUT % 84.7 %; PLATELET COUNT 257 K/uL (130-400); RED BLOOD COUNT 4.45 M/uL (4.7-6.1); WHITE BLOOD COUNT 8.19 K/uL (4.8-10.8)
[2017-03-01 14:37] VITALS: O2SAT 96
--- NOTE | 2017-03-01 14:47 | EMERGENCY ROOM VISIT NOTE ---
History Report prepared by Jessika: Annette Collado Under the Supervision of: Dr. Yeyo Galloway M.D. First contact with patient: 13:59 Chief Complaint: RIB PAIN Stated Complaint: RIGHT SIDE ABD. PAIN History of Present Illness The patient is a 76 year old male who presents to the Emergency Room with complaints of worsening rib pain starting last night. The patient states that he fell on Thanksgiving, but thinks that this is different. He states that he thought he pulled a muscle. He states that the pain feels sharp and currently rates his pain as an 8/10 in severity. He states that deep breathing makes the pain worse. The patient states that he took the first four pills of the Prednisone he was prescribed four hours ago from his last visit. He notes that he still has his Shingles and they are bothering him on his head. Pt denies LOC, headache, fevers, chills, diaphoresis, visual changes, neck pain , upper or left sided chest pain, breathing difficulties, nausea, vomiting, lower or left abdominal pain, back pain, melena, hematochezia, urinary symptoms , numbness, weakness, lymphadenopathy, rash, or other complaints. Source of History: patient Onset: last night Position: other (right rib) Symptom Intensity: 8/10 Quality: sharp Timing: worsening Modifying Factors (Worsening): breathing (deep) Note: The patient complains of the pain from his Shingles on his head. Review of Systems See HPI for pertinent positives and negatives. A total of ten systems were reviewed and were otherwise negative. Past Medical & Surgical Medical Problems: (1) Fever (2) HLD (hyperlipidemia) (3) HTN (hypertension) (4) Leukocytosis (5) Thyroid disease Family History No pertinent family history Social History Smoking Status: Former Smoker Alcohol Use: none Drug Use: none Marital Status: single Housing Status: lives alone Occupation Status: retired Current/Historical Medications Scheduled Aspirin (Aspirin Ec), 81 MG PO DAILY Atorvastatin (Lipitor), 80 MG PO DAILY Calcitriol (Rocaltrol Cap), 0.25 MCG PO DAILY Gabapentin (Neurontin), 100 MG PO TID Levothyroxine Sodium (Synthroid), 75 MCG PO DAILY Losartan Potassium (Cozaar), 100 MG PO DAILY Prednisone Tab (Prednisone), 40 MG PO UD Sodium Bicarbonate (Sodium Bicarbonate), 1 TAB PO TID Scheduled PRN Nitroglycerin (Nitrostat), 0.4 MG UT UD PRN for Chest Pain Allergies Coded Allergies: No Known Allergies (Unverified , 07/11/10) Physical Exam Vital Signs Date Time Temp Pulse Resp B/P (MAP) Pulse Ox O2 Delivery O2 Flow Rate FiO2 03/01/17 18:27 66 16 167/99 96 Room Air 03/01/17 15:46 63 16 144/81 98 Room Air 03/01/17 15:22 66 03/01/17 14:37 96 Room Air 03/01/17 13:38 36.5 79 18 139/85 98 Room Air Physical Exam GENERAL: Awake, alert, well-appearing, in no distress HENT: Normocephalic, atraumatic. Oropharynx unremarkable. EYES: Normal conjunctiva. Sclera non-icteric. NECK: Supple. No nuchal rigidity. FROM. No JVD. RESPIRATORY: Clear to auscultation. CARDIAC: Regular rate, normal rhythm. Extremities warm and well perfused. Pulses equal. ABDOMEN: Soft, non-distended. No tenderness to palpation. No rebound or guarding. No masses. RECTAL: Deferred. MUSCULOSKELETAL: Chest examination reveals no tenderness. The back is symmetrical on inspection without obvious abnormality. There is no CVA tenderness to palpation. No joint edema. LOWER EXTREMITIES: Calves are equal size bilaterally and non-tender. Trace lower extremity edema. No discoloration. NEURO: Normal sensorium. No sensory or motor deficits noted. SKIN: No rash or jaundice noted. Medical Decision & Procedures ER Provider Diagnostic Interpretation: Radiology results as stated below per my review and radiologist interpretation: R RIBS UNILATERAL WITH PA CHEST CLINICAL HISTORY: right rib pain COMPARISON STUDY: Chest 01/22/2012. FINDINGS: A few right mid lateral rib deformities consistent with old, healed fractures. This remains unchanged. The lungs are clear. No pleural effusions. No pneumothorax. The heart is stable in size. IMPRESSION: No change compared to the prior study. No acute rib fractures. No pneumothorax. Electronically signed by: Sergey Mathews M.D. 03/01/2017 3:30 PM Dictated Date/Time: 03/01/2017 3:27 PM BILATERAL LOWER EXTREMITY VENOUS DOPPLER HISTORY: Leg swelling. COMPARISON STUDY: None. FINDINGS: There is normal compressibility, flow, and augmentation within the bilateral lower extremity deep venous systems. IMPRESSION: No DVT within the right or left lower extremity. Electronically signed by: Sergey Mathews M.D. 03/01/2017 5:47 PM Dictated Date/Time: 03/01/2017 5:47 PM UCLEAR METASTATIC VENTILATION/PERFUSION SCAN HISTORY: right lower lateral/anterior chest pain, +dimer TECHNIQUE: Immediately following the inhalation of 32.8 mCi of technetium 99m TPA and the intravenous administration of 5.9 mCi of technetium 99 M MAA, anterior, posterior, oblique, lateral views of the chest were performed for the ventilation and perfusion scan. COMPARISON STUDY: Chest 03/01/2017. FINDINGS: Mild enlargement of the cardiac silhouette. There are no segmental or mismatched defects identified within the lungs. IMPRESSION: Above findings are consistent with a very low probability scan. Electronically signed by: Sergey Mathews M.D. 03/01/2017 6:31 PM Dictated Date/Time: 03/01/2017 6:28 PM ABDOMINAL ULTRASOUND, RIGHT UPPER QUADRANT HISTORY: RUQ pain. COMPARISON: None. FINDINGS: Pancreas: Obscured by overlying bowel gas. Liver: Unremarkable. Gallbladder: No gallbladder wall thickening. No gallstones. CBD: 4 mm. Right kidney: No hydronephrosis. IMPRESSION: No significant abnormality identified within the right upper quadrant. Electronically signed by: Sergey Mathews M.D. 03/01/2017 5:50 PM Dictated Date/Time: 03/01/2017 5:47 PM Laboratory Results 03/01/17 14:25 Red Blood Count 4.45, Mean Corpuscular Volume 87.2, Mean Corpuscular Hemoglobin 29.2, Mean Corpuscular Hemoglobin Concent 33.5, Mean Platelet Volume 9.2, Neutrophils (%) (Auto) 84.7, Lymphocytes (%) (Auto) 7.9, Monocytes (%) (Auto) 6.6, Eosinophils (%) (Auto) 0.2, Basophils (%) (Auto) 0.2, Neutrophils # (Auto) 6.93, Lymphocytes # (Auto) 0.65, Monocytes # (Auto) 0.54, Eosinophils # (Auto) 0.02, Basophils # (Auto) 0.02 03/01/17 14:25 Test 03/01/17 14:25 03/01/17 14:33 White Blood Count 8.19 K/uL (4.8-10.8) Red Blood Count 4.45 M/uL (4.7-6.1) Hemoglobin 13.0 g/dL (14.0-18.0) Hematocrit 38.8 % (42-52) Mean Corpuscular Volume 87.2 fL (80-100) Mean Corpuscular Hemoglobin 29.2 pg (25-34) Mean Corpuscular Hemoglobin Concent 33.5 g/dl (32-36) Platelet Count 257 K/uL (130-400) Mean Platelet Volume 9.2 fL (7.4-10.4) Neutrophils (%) (Auto) 84.7 % Lymphocytes (%) (Auto) 7.9 % Monocytes (%) (Auto) 6.6 % Eosinophils (%) (Auto) 0.2 % Basophils (%) (Auto) 0.2 % Neutrophils # (Auto) 6.93 K/uL (1.4-6.5) Lymphocytes # (Auto) 0.65 K/uL (1.2-3.4) Monocytes # (Auto) 0.54 K/uL (0.11-0.59) Eosinophils # (Auto) 0.02 K/uL (0-0.5) Basophils # (Auto) 0.02 K/uL (0-0.2) RDW Standard Deviation 45.0 fL (36.4-46.3) RDW Coefficient of Variation 14.1 % (11.5-14.5) Immature Granulocyte % (Auto) 0.4 % Immature Granulocyte # (Auto) 0.03 K/uL (0.00-0.02) Anion Gap 12.0 mmol/L (3-11) Est Creatinine Clear Calc Drug Dose 25.1 ml/min Estimated GFR () 23.8 Estimated GFR (Non- 20.5 BUN/Creatinine Ratio 21.5 (10-20) Calcium Level 8.6 mg/dl (8.5-10.1) Total Bilirubin 0.3 mg/dl (0.2-1) Direct Bilirubin 0.1 mg/dl (0-0.2) Aspartate Amino Transf (AST/SGOT) 43 U/L (15-37) Alanine Aminotransferase (ALT/SGPT) 67 U/L (12-78) Alkaline Phosphatase 88 U/L (45-117) Troponin I < 0.015 ng/ml (0-0.045) Total Protein 6.5 gm/dl (6.4-8.2) Albumin 2.5 gm/dl (3.4-5.0) Lipase 144 U/L (73-393) Bedside D-Dimer > 450 ng/mlFEU (0-450) Laboratory results reviewed by me ECG Indication: other (rib pain) Rate (beats per minute): 70 Rhythm: sinus rhythm Findings: PAC, no acute ischemic change ED Course 1405: The patient was evaluated in room B3B. A complete history and physical exam was performed. 1457: I reevaluated the patient and updated him on the plan. 1856: I reevaluated the patient. Discussed results and discharge instructions: He verbalized understanding and agreement. He will follow up with his PCP this week. The patient is ready for discharge. Medical Decision Triage Nursing notes reviewed. The patient's presentation and history were concerning for pleuritic right lower rib pain. Etiologies such as musculoskeletal, pleurisy, pulmonary embolism, pneumonia, pneumothorax, infections, gastrointestinal, cardiac ischemia, aortic dissection , as well as others were entertained. The patient was evaluated. He declined analgesia. ECG was nonischemic. His ribs were nontender. He had no calf tenderness or significant leg swelling. Unfortunately patient's creatinine is elevated and a CT PE study could not be performed. A d-dimer was done. This was elevated. Given his age and recent arthritis issues it is difficult to accurately determine however because of the pain a PE/DVT workup was necessary. The patient underwent ultrasound imaging of the legs as well as right upper quadrant. No abnormalities were noted. He cannot have a CT PE study because of his creatinine and therefore a VQ scan was ordered. His VQ scan did not show any abnormalities concerning for pulmonary embolus. The patient has stable vital signs. He has no lower extremity DVTs. He has no stigmata of DVT. He was feeling better on reassessment. His blood work was otherwise unremarkable. X-rays did not reveal any abnormalities either. I discussed conservative management with the patient and brother and they felt comfortable. He has an appointment this coming week with his primary physician. He will rest and take it easy. If he has any escalating symptoms or other problems develop he will come back to the emergency Department immediately for reevaluation. I gave my usual and customary discussion regarding this issue. By the evaluation outlined above other emergent etiologies such as those listed in the differential, as well as others, were deemed relatively unlikely. The patient was educated about the findings as listed above. All questions were answered and the patient was pleased with the treatment. Return instructions were outlined and the patient was discharged in stable condition. The patient was referred to his PCP for follow-up for a recheck of the current condition. Medication Reconcilliation Current Medication List: was personally reviewed by me Blood Pressure Screening Patient's blood pressure: Elevated blood pressure Blood pressure disposition: Referred to PCP Impression Primary Impression: Right-sided chest pain Scribe Attestation The scribe's documentation has been prepared under my direction and personally reviewed by me in its entirety. I confirm that the note above accurately reflects all work, treatment, procedures, and medical decision making performed by me. Departure Information Dispostion Home / Self-Care Referrals Lucien Morales M.D. (PCP) Forms HOME CARE DOCUMENTATION FORM, IMPORTANT VISIT INFORMATION, WORK / SCHOOL INSTRUCTIONS Patient Instructions [facility] Additional Instructions Acetaminophen(Tylenol) may be used for fever or pain. Use 1000mg every six hours as needed. Avoid using more than 4000mg in a 24 hour period. Rest and drink plenty of fluids as tolerated. Continue current medications. Avoid strenuous activities and anything that worsens your pain. Resume normal activities once your symptoms resolve. Return to the ER immediately for worsening or persistent chest/rib pain, abdominal pain, vomiting, fevers, chest pains, difficulty breathing, worsening of your condition, or as needed. Follow up with your primary physician this week as scheduled for a recheck of your current condition.
[2017-03-01 14:52] LABS: ALT/SGPT 67 U/L (12-78); BLOOD UREA NITROGEN 61 mg/dl (7-18); BUN/CREATININE RATIO 21.5 (10-20); CALCIUM 8.6 mg/dl (8.5-10.1); CARBON DIOXIDE 21 mmol/L (21-32); CHLORIDE 106 mmol/L (98-107); CREATININE 2.82 mg/dl (0.60-1.40); GLUCOSE 140 mg/dl (70-99); POTASSIUM 3.9 mmol/L (3.5-5.1); SODIUM 139 mmol/L (136-145)
[2017-03-01 14:57] LABS: ALKALINE PHOSPHATASE 88 U/L (45-117); AST/SGOT 43 U/L (15-37)
--- NOTE | 2017-03-01 15:32 | DIAGNOSTIC IMAGING REPORT ---
R RIBS UNILATERAL WITH PA CHEST CLINICAL HISTORY: right rib pain COMPARISON STUDY: Chest 01/22/2012. FINDINGS: A few right mid lateral rib deformities consistent with old, healed fractures. This remains unchanged. The lungs are clear. No pleural effusions. No pneumothorax. The heart is stable in size. IMPRESSION: No change compared to the prior study. No acute rib fractures. No pneumothorax. Electronically signed by: Sergey Mathews M.D. 03/01/2017 3:30 PM Dictated Date/Time: 03/01/2017 3:27 PM
--- NOTE | 2017-03-01 17:48 | DIAGNOSTIC IMAGING REPORT ---
BILATERAL LOWER EXTREMITY VENOUS DOPPLER HISTORY: Leg swelling. COMPARISON STUDY: None. FINDINGS: There is normal compressibility, flow, and augmentation within the bilateral lower extremity deep venous systems. IMPRESSION: No DVT within the right or left lower extremity. Electronically signed by: Sergey Mathews M.D. 03/01/2017 5:47 PM Dictated Date/Time: 03/01/2017 5:47 PM
--- NOTE | 2017-03-01 17:51 | DIAGNOSTIC IMAGING REPORT ---
ABDOMINAL ULTRASOUND, RIGHT UPPER QUADRANT HISTORY: RUQ pain. COMPARISON: None. FINDINGS: Pancreas: Obscured by overlying bowel gas. Liver: Unremarkable. Gallbladder: No gallbladder wall thickening. No gallstones. CBD: 4 mm. Right kidney: No hydronephrosis. IMPRESSION: No significant abnormality identified within the right upper quadrant. Electronically signed by: Sergey Mathews M.D. 03/01/2017 5:50 PM Dictated Date/Time: 03/01/2017 5:47 PM
--- NOTE | 2017-03-01 18:32 | DIAGNOSTIC IMAGING REPORT ---
NUCLEAR METASTATIC VENTILATION/PERFUSION SCAN HISTORY: right lower lateral/anterior chest pain, +dimer TECHNIQUE: Immediately following the inhalation of 32.8 mCi of technetium 99m TPA and the intravenous administration of 5.9 mCi of technetium 99 M MAA, anterior, posterior, oblique, lateral views of the chest were performed for the ventilation and perfusion scan. COMPARISON STUDY: Chest 03/01/2017. FINDINGS: Mild enlargement of the cardiac silhouette. There are no segmental or mismatched defects identified within the lungs. IMPRESSION: Above findings are consistent with a very low probability scan. Electronically signed by: Sergey Mathews M.D. 03/01/2017 6:31 PM Dictated Date/Time: 03/01/2017 6:28 PM
[2017-03-01 19:23] VITALS: BP 144/88; PULSE 65; O2SAT 95
== END 2017-03-01 19:52 | disposition home or self-care (01) ==
LOC: C.EDB 13:33
DX: R07.89 Other chest pain (principal); W19.XXXA Unspecified fall, initial encounter; I10 Essential (primary) hypertension; E78.5 Hyperlipidemia, unspecified; E07.9 Disorder of thyroid, unspecified; B02.9 Zoster without complications; Z87.891 Personal history of nicotine dependence; Z79.82 Long term (current) use of aspirin

== ENCOUNTER 2017-03-12 06:59 | Emergency (ER) | payer OTHER ==
[~2017-03-12] VITALS: Ht 188 cm; Wt 91.6 kg
[~2017-03-12 06:59] MED LIST changes: -HYDR-5688 PO; -PRLSR20 PO
[2017-03-12 07:03] VITALS: TEMP 36.7; Ht 188 cm; Wt 91.6 kg
--- NOTE | 2017-03-12 07:19 | EMERGENCY ROOM VISIT NOTE ---
History Report prepared by Jessika: Josefina Head Under the Supervision of: Dr. Any Hilton M.D. First contact with patient: 07:08 Chief Complaint: URINARY SYMPTOMS Stated Complaint: BLOOD IN URINE Nursing Triage Summary: Hematuria x couple days History of Present Illness The patient is a 76 year old male who presents to the Emergency Room with complaints of persistent hematuria for the past several days. The patient reports that he takes 81 mg of aspirin. The patient reports some slight right sided abdominal pain, describing his pain as a pulled muscle. He denies any fever, back pain, or other urinary symptoms. The patient states that he recently fell two weeks ago. He reports a history of kidney disease, noting that he follows with Dr. Martinez. Source of History: patient Onset: several days Position: other (global) Quality: other (hematuria) Timing: other (persistent) Associated Symptoms: + abdominal pain, No fevers, No back pain, No urinary symptoms Review of Systems See HPI for pertinent positives & negatives. A total of 10 systems reviewed and were otherwise negative. Past Medical & Surgical Medical Problems: (1) Fever (2) HLD (hyperlipidemia) (3) HTN (hypertension) (4) Leukocytosis (5) Thyroid disease Family History No pertinent family history Social History Smoking Status: Former Smoker Alcohol Use: none Drug Use: none Marital Status: single Housing Status: lives alone Occupation Status: retired Current/Historical Medications Scheduled Aspirin (Aspirin Ec), 81 MG PO DAILY Atorvastatin (Lipitor), 80 MG PO QAM Calcitriol (Rocaltrol Cap), 0.25 MCG PO QAM Levothyroxine Sodium (Synthroid), 75 MCG PO DAILY Losartan Potassium (Cozaar), 100 MG PO QAM Omeprazole (Prilosec), 20 MG PO QAM Prednisone Tab (Prednisone), 40 MG PO UD Sodium Bicarbonate (Sodium Bicarbonate), 1 TAB PO TID Scheduled PRN Nitroglycerin (Nitrostat), 0.4 MG UT UD PRN for Chest Pain Allergies Coded Allergies: No Known Allergies (Unverified , 03/12/17) Physical Exam Vital Signs Date Time Temp Pulse Resp B/P (MAP) Pulse Ox O2 Delivery O2 Flow Rate FiO2 03/12/17 11:09 55 16 128/68 95 03/12/17 09:12 69 16 119/73 95 03/12/17 08:04 68 03/12/17 07:03 36.7 77 16 124/74 98 Room Air Physical Exam Vital signs reviewed. General: Well-appearing male, in no significant distress. HEENT: No scleral icterus, PERRLA, neck supple. Atraumatic. Cardiovascular: Regular rate and rhythm, no extra sounds. Pulmonary: Clear to auscultation bilaterally, normal work of breathing. Abdomen: Soft, nontender, nondistended, positive bowel sounds. Musculoskeletal: Atraumatic, no peripheral edema. Neurologic: Patient awake alert and oriented x 3 Skin: Warm, dry, no rash Medical Decision & Procedures ER Provider Diagnostic Interpretation: Radiology results as stated below per my review and radiologist interpretation: ABD/PELVIS NO IV OR ORAL CONT CT DOSE: 1449.16 mGy.cm HISTORY: Pain hematuria, R abd pain, CKD TECHNIQUE: Multiaxial CT images of the abdomen and pelvis were performed without contrast. A dose lowering technique was utilized adhering to the principles of ALARA. COMPARISON STUDY: None. FINDINGS: Lung bases are clear. Liver is slightly heterogeneous. Gallbladder is negative for distention. Intrauterine device is normal. Kidneys show moderate cortical scarring and atrophic change bilaterally. There is no evidence for hydronephrosis. Ureters normal in course and caliber. There is no evidence for hydronephrosis. Artifact from patient's bilateral hip prosthetics limited visibility of the distal ureters. Also limited visibility of the bladder. There is diffuse colonic diverticulosis. There is no evidence for acute diverticulitis. The appendix is normal. IMPRESSION: 1. No evidence for an obstructing urinary tract calculus. 2. Diffuse colonic diverticulosis with no evidence for acute diverticulitis. 3. Normal appendix. The above report was generated using voice recognition software. It may contain grammatical, syntax or spelling errors. Electronically signed by: Lucien Loza M.D. 03/12/2017 7:58 AM Dictated Date/Time: 03/12/2017 7:43 AM (RENAL)RETROPERITON COMP HISTORY: Hematuria PAINLESS HEMATURIA COMPARISON: None. FINDINGS: Right kidney: Maximum dimension 9.1 cm. No evidence for hydronephrosis Left kidney: Maximum dimension 11.4 cm. 1 cm mid pole cyst. No evidence for hydronephrosis. Bladder: Small amount of debris versus polypoid lesion within the bladder lumen. Cystoscopy is suggested. IMPRESSION: 1. Small left renal cyst. 2. No evidence for hydronephrosis. 3. Polypoid lesion versus hematoma/debris within the bladder lumen. Cystoscopy is suggested. The above report was generated using voice recognition software. It may contain grammatical, syntax or spelling errors. Electronically signed by: Lucien Loza M.D. 03/12/2017 10:21 AM Dictated Date/Time: 03/12/2017 10:19 AM Laboratory Results 03/12/17 07:20 Red Blood Count 5.10, Mean Corpuscular Volume 87.8, Mean Corpuscular Hemoglobin 30.0, Mean Corpuscular Hemoglobin Concent 34.2, Mean Platelet Volume 9.8, Neutrophils (%) (Auto) 75.5, Lymphocytes (%) (Auto) 17.0, Monocytes (%) (Auto) 4.7, Eosinophils (%) (Auto) 1.5, Basophils (%) (Auto) 0.3, Neutrophils # (Auto) 7.28, Lymphocytes # (Auto) 1.64, Monocytes # (Auto) 0.45, Eosinophils # (Auto) 0.14, Basophils # (Auto) 0.03 03/12/17 07:20 Test 03/12/17 07:20 White Blood Count 9.64 K/uL (4.8-10.8) Red Blood Count 5.10 M/uL (4.7-6.1) Hemoglobin 15.3 g/dL (14.0-18.0) Hematocrit 44.8 % (42-52) Mean Corpuscular Volume 87.8 fL (80-100) Mean Corpuscular Hemoglobin 30.0 pg (25-34) Mean Corpuscular Hemoglobin Concent 34.2 g/dl (32-36) Platelet Count 314 K/uL (130-400) Mean Platelet Volume 9.8 fL (7.4-10.4) Neutrophils (%) (Auto) 75.5 % Lymphocytes (%) (Auto) 17.0 % Monocytes (%) (Auto) 4.7 % Eosinophils (%) (Auto) 1.5 % Basophils (%) (Auto) 0.3 % Neutrophils # (Auto) 7.28 K/uL (1.4-6.5) Lymphocytes # (Auto) 1.64 K/uL (1.2-3.4) Monocytes # (Auto) 0.45 K/uL (0.11-0.59) Eosinophils # (Auto) 0.14 K/uL (0-0.5) Basophils # (Auto) 0.03 K/uL (0-0.2) RDW Standard Deviation 47.1 fL (36.4-46.3) RDW Coefficient of Variation 14.8 % (11.5-14.5) Immature Granulocyte % (Auto) 1.0 % Immature Granulocyte # (Auto) 0.10 K/uL (0.00-0.02) Prothrombin Time 11.2 SECONDS (9.0-12.0) Prothromb Time International Ratio 1.1 (0.9-1.1) Activated Partial Thromboplast Time 24.5 SECONDS (21.0-31.0) Partial Thromboplastin Ratio 0.9 Urine Color RED Urine Appearance CLOUDY (CLEAR) Urine pH 5.0 (4.5-7.5) Urine Specific [place] 1.015 (1.000-1.030) Urine Protein 1+ (NEG) Urine Glucose (UA) NEG (NEG) Urine Ketones NEG (NEG) Urine Occult Blood 3+ (NEG) Urine Nitrite NEG (NEG) Urine Bilirubin NEG (NEG) Urine Urobilinogen NEG (NEG) Urine Leukocyte Esterase TRACE (NEG) Urine WBC (Auto) 10-30 /hpf (0-5) Urine RBC (Auto) >30 /hpf (0-4) Urine Hyaline Casts (Auto) 0 /lpf (0-5) Urine Epithelial Cells (Auto) >30 /lpf (0-5) Urine Bacteria (Auto) NEG (NEG) Urine Renal Epithelial Cells /lpf (0-5) Anion Gap 7.0 mmol/L (3-11) Est Creatinine Clear Calc Drug Dose 24.3 ml/min Estimated GFR () 22.8 Estimated GFR (Non- 19.6 BUN/Creatinine Ratio 21.8 (10-20) Calcium Level 8.4 mg/dl (8.5-10.1) Total Bilirubin 0.5 mg/dl (0.2-1) Direct Bilirubin 0.2 mg/dl (0-0.2) Aspartate Amino Transf (AST/SGOT) 20 U/L (15-37) Alanine Aminotransferase (ALT/SGPT) 32 U/L (12-78) Alkaline Phosphatase 80 U/L (45-117) Total Protein 6.4 gm/dl (6.4-8.2) Albumin 3.1 gm/dl (3.4-5.0) Laboratory results per my review. ED Course 0709: Past medical records reviewed. The patient was evaluated in room A2. A complete history and physical examination was performed. 1051: I reevaluated the patient and he is resting comfortably. I discussed the exam findings with him and I discussed the treatment plan. He verbalized complete understanding and agreement. He is ready to go home. Medical Decision Differential diagnosis: Etiologies such as renal colic, appendicitis, diverticulitis, mesenteric ischemia, aortic pathology, infections, inflammatory bowel disease, PUD, biliary pathology, UTI, bladder mass, as well as others were entertained. This patient was evaluated and appeared to be in no significant distress. IV access was obtained and laboratory work was drawn. CT scan of the abdomen and pelvis was performed to rule out kidney stone. There is no evidence of obstruction or hydronephrosis. Ultrasound of the kidneys and bladder was performed and reveals debris in the bladder lumen. Patient's laboratory work is fairly unrevealing. UA is consistent with blood. Patient does have a chronic renal insufficiency. He will be seen by urology later this week as arranged by case management. Patient was encouraged to drink plenty of clear fluids. He will stop aspirin. He will return to the ER for worsening of symptoms or any medical concerns. Medication Reconcilliation Current Medication List: was personally reviewed by me Blood Pressure Screening Patient's blood pressure: Normal blood pressure Blood pressure disposition: Did not require urgent referral Impression Primary Impression: Painless hematuria Scribe Attestation The scribe's documentation has been prepared under my direction and personally reviewed by me in its entirety. I confirm that the note above accurately reflects all work, treatment, procedures, and medical decision making performed by me. Departure Information Dispostion Home / Self-Care Referrals Lucien Morales M.D. (PCP) Suresh Whitney MD, Urology Forms HOME CARE DOCUMENTATION FORM, IMPORTANT VISIT INFORMATION Patient Instructions Hematuria, [facility] Additional Instructions Diagnosis: Painless hematuria Please drink plenty of clear fluids. Stop taking aspirin until further notice. Follow-up with urology as scheduled by case management. Follow-up with your primary care physician for reevaluation. Return to the ER for worsening of symptoms or any medical concerns.
[2017-03-12] MEDS ORDERED: PRLSR20 PO (07:21)
[2017-03-12 07:35] LABS: BASO % 0.3 %; BASO ABS # 0.03 K/uL (0-0.2); COMPLETE YES; EOS % 1.5 %; HEMATOCRIT 44.8 % (42-52); LYMPH ABS # 1.64 K/uL (1.2-3.4); MEAN CELL VOLUME 87.8 fL (80-100); MEAN CORPUSCULAR HGB CONC 34.2 g/dl (32-36); MEAN PLATELET VOLUME 9.8 fL (7.4-10.4); MONO % 4.7 %; NEUT % 75.5 %; PLATELET COUNT 314 K/uL (130-400); WHITE BLOOD COUNT 9.64 K/uL (4.8-10.8)
[2017-03-12 07:37] LABS: URINE APPEARANCE CLOUDY (CLEAR); URINE BILIRUBIN NEG (NEG); URINE COLOR RED; URINE EPITHELIAL CELL AUTO >30 /lpf (0-5); URINE NITRITE NEG (NEG); URINE SPECIFIC GRAVITY 1.015 (1.000-1.030); UROBILINOGEN NEG (NEG); ZZUR CULT IF INDIC CLEAN CATCH YES
[2017-03-12 07:39] LABS: MANUAL MICROSCOPIC REQUIRED? NO; REVIEW REQ? YES
[2017-03-12 07:43] LABS: INR 1.1 (0.9-1.1); PARTIAL THROMBOPLASTIN RATIO 0.9; PROTHROMBIN TIME (PATIENT) 11.2 SECONDS (9.0-12.0)
[2017-03-12 07:54] LABS: BUN/CREATININE RATIO 21.8 (10-20); CALCIUM 8.4 mg/dl (8.5-10.1); CREATININE 2.92 mg/dl (0.60-1.40); POTASSIUM 3.7 mmol/L (3.5-5.1)
--- NOTE | 2017-03-12 07:59 | DIAGNOSTIC IMAGING REPORT ---
ABD/PELVIS NO IV OR ORAL CONT CT DOSE: 1449.16 mGy.cm HISTORY: Pain hematuria, R abd pain, CKD TECHNIQUE: Multiaxial CT images of the abdomen and pelvis were performed without contrast. A dose lowering technique was utilized adhering to the principles of ALARA. COMPARISON STUDY: None. FINDINGS: Lung bases are clear. Liver is slightly heterogeneous. Gallbladder is negative for distention. Intrauterine device is normal. Kidneys show moderate cortical scarring and atrophic change bilaterally. There is no evidence for hydronephrosis. Ureters normal in course and caliber. There is no evidence for hydronephrosis. Artifact from patient's bilateral hip prosthetics limited visibility of the distal ureters. Also limited visibility of the bladder. There is diffuse colonic diverticulosis. There is no evidence for acute diverticulitis. The appendix is normal. IMPRESSION: 1. No evidence for an obstructing urinary tract calculus. 2. Diffuse colonic diverticulosis with no evidence for acute diverticulitis. 3. Normal appendix. The above report was generated using voice recognition software. It may contain grammatical, syntax or spelling errors. Electronically signed by: Lucien Loza M.D. 03/12/2017 7:58 AM Dictated Date/Time: 03/12/2017 7:43 AM
--- NOTE | 2017-03-12 10:23 | DIAGNOSTIC IMAGING REPORT ---
(RENAL)RETROPERITON COMP HISTORY: Hematuria PAINLESS HEMATURIA COMPARISON: None. FINDINGS: Right kidney: Maximum dimension 9.1 cm. No evidence for hydronephrosis Left kidney: Maximum dimension 11.4 cm. 1 cm mid pole cyst. No evidence for hydronephrosis. Bladder: Small amount of debris versus polypoid lesion within the bladder lumen. Cystoscopy is suggested. IMPRESSION: 1. Small left renal cyst. 2. No evidence for hydronephrosis. 3. Polypoid lesion versus hematoma/debris within the bladder lumen. Cystoscopy is suggested. The above report was generated using voice recognition software. It may contain grammatical, syntax or spelling errors. Electronically signed by: Lucien Loza M.D. 03/12/2017 10:21 AM Dictated Date/Time: 03/12/2017 10:19 AM
[2017-03-12 11:09] VITALS: BP 128/68; PULSE 55; O2SAT 95
== END 2017-03-12 11:41 | disposition home or self-care (01) ==
LOC: C.EDB 07:00 → C.EDA 11:41
DX: R31.9 Hematuria, unspecified (principal); E78.5 Hyperlipidemia, unspecified; I10 Essential (primary) hypertension; D72.829 Elevated white blood cell count, unspecified; E07.9 Disorder of thyroid, unspecified; Z87.891 Personal history of nicotine dependence; Z79.82 Long term (current) use of aspirin

== ENCOUNTER → 2017-03-20 | Outpatient (CLI) | payer OTHER ==
[~2017-03-20] MED LIST changes: -GABA-112 PO; +PRLSR20 PO
== END | disposition home or self-care (01) ==
LOC: C.LABSPEC 17:14
PROVIDERS: ATTEND Urology
DX: R31.0 Gross hematuria (principal)

== ENCOUNTER → 2017-04-08 | Outpatient (CLI) | payer OTHER ==
[~2017-04-08] MED LIST changes: +CALC500C3 PEG; +CIPR-255 PO; +CIPR250T3 PO; +DTR/5 PO; +GABA-113 PO; +OXYC7.5T65 PO; +PHEN-775 PO; +PRED-301 PO; +TAMS0.4C38 PO
--- NOTE | 2017-04-08 08:55 | DIAGNOSTIC IMAGING REPORT ---
ABD/PELVIS NO IV OR ORAL CONT CT DOSE: 797.59 mGy.cm HISTORY: Hematuria R31.0 Gross hematuriaNon contrast due to high creatinine of 2.49 TECHNIQUE: Multiaxial CT images of the abdomen and pelvis were performed without contrast. A dose lowering technique was utilized adhering to the principles of ALARA. COMPARISON STUDY: 03/12/2017 FINDINGS: Lung bases remain clear. The study is restricted to an unenhanced exam due to renal function status. Lung bases remain clear. Liver is uniform within limitations of an unenhanced scan. Spleen is unremarkable. Pancreas is within normal limits. Mild cortical scarring of the kidneys with no evidence for hydronephrosis or calcification. This is similar as compared to the prior study. Atherosclerotic change abdominal aorta as well as iliac vasculature. Chronic sigmoid diverticulosis. No evidence for acute diverticulitis. Nonobstructive bowel pattern. Bilateral hip prosthetics creates significant artifact which obscures visibility of the bulk of the bladder and low pelvic region. No significant inguinal adenopathy. IMPRESSION: 1. Chronic sigmoid diverticulosis. 2. Otherwise negative abdomen and pelvis within the limitations of an unenhanced exam. 3. 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 The above report was generated using voice recognition software. It may contain grammatical, syntax or spelling errors. Electronically signed by: Lucien Loza M.D. 04/08/2017 8:54 AM Dictated Date/Time: 04/08/2017 8:45 AM
== END | disposition home or self-care (01) ==
LOC: C.CTS 08:19
PROVIDERS: ATTEND Urology
DX: R31.0 Gross hematuria (principal); K57.30 Diverticulosis of large intestine without perforation or abscess without bleeding; Z96.643 Presence of artificial hip joint, bilateral

== ENCOUNTER → 2017-05-04 | Day surgery (SDC) | payer OTHER ==
[2017-04-28 08:09] VITALS: Ht 175.3 cm; Wt 95.1 kg
--- NOTE | 2017-04-28 08:47 | PAT Medication Instructions ---
Service Date Apr 28, 2017. Current Home Medication List Calcitriol (Rocaltrol Cap), 0.25 MCG PO QAM Levothyroxine Sodium (Synthroid), 75 MCG PO QAM Losartan Potassium (Cozaar), 100 MG PO QAM Nitroglycerin (Nitrostat), 0.4 MG UT UD PRN for Chest Pain Omeprazole (Prilosec), 20 MG PO QAM Sodium Bicarbonate (Sodium Bicarbonate), 1 TAB PO TID Medication Instructions For Your Scheduled Surgery - Hold the following medications the morning of surgery: Calcitriol (Rocaltrol Cap), 0.25 MCG PO QAM Losartan Potassium (Cozaar), 100 MG PO QAM Sodium Bicarbonate (Sodium Bicarbonate), 1 TAB PO TID - Take the following medications the morning of surgery with a sip of water: Omeprazole (Prilosec), 20 MG PO QAM Levothyroxine Sodium (Synthroid), 75 MCG PO QAM Nitroglycerin (Nitrostat), 0.4 MG UT UD PRN for Chest Pain (if needed) - Take the following medications as scheduled the night before surgery: Sodium Bicarbonate (Sodium Bicarbonate), 1 TAB PO TID Nitroglycerin (Nitrostat), 0.4 MG UT UD PRN for Chest Pain (if needed) If you have any questions please call us at [phone] or [phone] or [phone]
[2017-04-28 09:53] LABS: BASO % 0.3 %; BASO ABS # 0.04 K/uL (0-0.2); EOS % 0.3 %; EOS ABS # 0.04 K/uL (0-0.5); HEMATOCRIT 42.8 % (42-52); HEMOGLOBIN 14.4 g/dL (14.0-18.0); IG# 0.32 K/uL (0.00-0.02); LYMPH % 10.8 %; LYMPH ABS # 1.45 K/uL (1.2-3.4); MEAN CELL VOLUME 88.6 fL (80-100); MEAN CORPUSCULAR HEMOGLOBIN 29.8 pg (25-34); MEAN CORPUSCULAR HGB CONC 33.6 g/dl (32-36); MEAN PLATELET VOLUME 9.7 fL (7.4-10.4); MONO % 8.1 %; MONO ABS # 1.08 K/uL (0.11-0.59); NEUT % 78.1 %; NEUT ABS # 10.46 K/uL (1.4-6.5); PLATELET COUNT 217 K/uL (130-400); RED CELL DISTRIBUTION WIDTH CV 16.6 % (11.5-14.5); RED CELL DISTRIBUTION WIDTH SD 53.5 fL (36.4-46.3); WHITE BLOOD COUNT 13.39 K/uL (4.8-10.8)
[2017-04-28 10:01] LABS: CALCIUM 8.8 mg/dl (8.5-10.1); CREATININE 2.63 mg/dl (0.60-1.40); POTASSIUM 4.1 mmol/L (3.5-5.1)
[~2017-05-04] VITALS: Ht 175.3 cm; Wt 95.1 kg
[~2017-05-04] MED LIST changes: -ASPI81TA28 PO; -ATOR-26 PO; +ATROPINE SULFATE 0.1 MG/ML 5ML SYR IV PRN; +BELLADONNA/OPIUM SUPP 60 MG SUPP PR ONE; -CALC500C3 PEG; -CIPR-255 PO; +CIPROFLOXACIN / D5W 400 MG IV SCH; +CONRAY 30% 150ML BOTTLE ONE; +FENTANYL CITRATE INJ 50 MCG/1 ML 2 ML VIAL IV PRN; +FENTANYL CITRATE INJ 50 MCG/1 ML 2 ML VIAL ONE; -GABA-113 PO; +KETOROLAC TROMETHAMINE 15 MG/ML VIAL IV. PRN; +LABETALOL HCL IV 5 MG/ML 20ML IV PRN; +LACTATED RINGER'S 1000ML 1,000 ML IV SCH; +LIDOCAINE HCL 2% 2 ML VIAL (20MG/ML) ONE; +MIDAZOLAM HCL 1 MG/ML 2ML VIAL ONE; +ONDANSETRON INJ 2 MG/ML 2 ML VIAL IV PRN; +ONDANSETRON INJ 2 MG/ML 2 ML VIAL ONE; +OXYCODONE/ACETAMINOPHEN 7.5-325 TAB PO PRN; +PHENYLEPHRINE 100MCG/ML 5ML SYR ONE; -PRED10TA PO; +PROPOFOL IV EMULSION 10 MG/ML 20 ML VIAL IV ONE; +SODIUM CHLORIDE 0.9% 1000ML 1,000 ML IV SCH; -TAMS0.4C38 PO
[2017-05-04 11:10] VITALS: BP 155/85; PULSE 66; TEMP 36.6; O2SAT 96
--- NOTE | 2017-05-04 12:13 | History & Physical Bridge Note ---
H&P Re-Evaluation Bridge Note: I have examined the patient, reviewed the History & Physical and in the interval since the performance of the History & Physical I have noted the following changes of clinical significance: No changes noted
--- NOTE | 2017-05-04 12:23 | Discharge Instructions ---
Discharge Instructions Date of Service May 04, 2017. Admission Reason for Admission: Bladder Mass Discharge Discharge Diagnosis / Problem: Bladder Tumor Discharge Goals Goal(s): Decrease discomfort, Improve function Activity Recommendations Activity Limitations: resume your previous activity Lifting Limitations: gradually increase as tolerated Exercise/Sports Limitations: gradually increase as tolerated Shower/Bathe: no limitations . Instructions / Follow-Up Instructions / Follow-Up Expect blood in urine. May have pelvic pain or discomfort. May have spasms. Pineda care instructions per nursing protocol. Okay to send home with bed bag and leg bag. Call if any fevers or chills. Current Hospital Diet Patient's current hospital diet: Discharge Diet Recommended Diet: Regular Diet Procedures Procedures Performed: Cysto TURBT Pending Studies Studies pending at discharge: no Medical Emergencies . Who to Call and When: Medical Emergencies: If at any time you feel your situation is an emergency, please call 911 immediately. . Non-Emergent Contact Non-Emergency issues call your: Primary Care Provider, Urologist Call Non-Emergent contact if: you have a fever, temperature is above 101, temperature is above 101.5, your pain is not controlled, your pain is worsening . . "Provider Documentation" section prepared by Teo Diaz,. . VTE Core Measure Inpt VTE Proph given/why not?: SCD's
--- NOTE | 2017-05-04 14:40 | DIAGNOSTIC IMAGING REPORT ---
RETROGRADE INCLUDES KUB HISTORY: B/L CYSTO/STENT FLUOROSCOPY TIME: 13 seconds. FINDINGS: 4 fluoroscopic spot images were submitted for review. Bilateral retrograde pyelograms were performed. No suspicious filling defects identified. No hydronephrosis. Bilateral total hip arthroplasties are noted. IMPRESSION: Fluoroscopy provided for bilateral retrograde pyelograms . No hydronephrosis.. Electronically signed by: Sergey Mathews M.D. 05/04/2017 2:39 PM Dictated Date/Time: 05/04/2017 2:34 PM
--- NOTE | 2017-05-04 14:51 | [facility] Operative Report ---
Operative Report Operative Date May 04, 2017. Pre-Operative Diagnosis Bladder Tumor Post-Operative Diagnosis Same Procedure(s) Performed Cystoscopy with bilateral retrograde pyleogram. TURBT, Large. RADHA. Surgeon Diaz Estimated Blood Loss 20 Findings Large bladder mass of posterior bladder. No obstruction of ureters. Specimens 1. Bladder tumor. 2. 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 Risks and benefits discussed. Description of Procedure Patient was consented and brought back to the operating room. Patient was placed under anesthesia in the supine position and moved to the dorsal lithotomy position. Patient was prepped and draped in the regular sterile fashion. A time out was completed. A 30degree Cystoscope was placed into the bladder and the entire bladder was examined. The UO's were identified. The right and left ureters were cannulized with a catheter and a retrograde pyelogram was completed. No obvious obstruction or filling defect. The scope was removed with the bladder partially full and the resection scope was placed. A bipolar loop was selected and the large tumor was resected. Approx 7.1 cm of tumor was removed. With the tumor resected, a deep resection was taken and sent separate from the tumor bulk. The wound bed was fulgurated with electrocautery. Great care was taken to monitor the landmarks of the bladder. With the resection complete and no further tumor identified, the bladder was left partially full. The scope was removed. A 20 Fr Pineda catheter was placed with good drainage. The patient was cleaned, aroused from anesthesia, and transferred to the pacu in stable condition having tolerated the procedure well with no complications. I was present and participated in all aspects of the procedure. The patient will be monitored in the PACU until transferred. I attest to the content of the Intraoperative Record and any orders documented therein. Any exceptions are noted below.
--- NOTE | 2017-05-04 15:43 | Anesthesiology Progress Note ---
Anesthesia Post Op Note Date & Time May 04, 2017 at 15:43 Vital Signs Pain Intensity: 0 Vital Signs Past 12 Hours Date Time Temp Pulse Resp B/P (MAP) Pulse Ox O2 Delivery O2 Flow Rate FiO2 05/04/17 15:39 36.2 05/04/17 15:30 57 15 95 05/04/17 15:30 58 15 05/04/17 15:26 167/96 05/04/17 15:25 57 19 05/04/17 15:25 55 19 95 05/04/17 15:21 153/86 05/04/17 15:20 59 21 05/04/17 15:20 62 21 99 05/04/17 15:19 57 17 100 05/04/17 15:19 58 17 05/04/17 15:18 152/85 05/04/17 15:14 69 24 05/04/17 15:14 64 24 99 05/04/17 15:13 63 15 05/04/17 15:13 64 15 100 05/04/17 15:11 145/91 05/04/17 15:08 63 13 99 05/04/17 15:08 66 13 05/04/17 15:06 152/87 05/04/17 15:03 70 14 05/04/17 15:03 67 14 97 05/04/17 15:01 36.6 81 20 136/87 98 Oxymask 10 05/04/17 15:01 150/109 05/04/17 14:58 83 21 05/04/17 14:58 83 21 136/87 94 05/04/17 11:10 36.6 66 18 155/85 (108) 96 Room Air Notes Mental Status: alert / awake / arousable, participated in evaluation Pt Amnestic to Procedure: Yes Nausea / Vomiting: adequately controlled Pain: adequately controlled Airway Patency, RR, SpO2: stable & adequate BP & HR: stable & adequate Hydration State: stable & adequate Anesthetic Complications: no major complications apparent
[2017-05-04 16:00] VITALS: BP 159/90; PULSE 61; TEMP 36.5; O2SAT 95
[2017-05-04 16:30] VITALS: BP 145/85; PULSE 64; TEMP 36.7; O2SAT 97
== END | disposition home or self-care (01) ==
LOC: C.ACU 10:33
PROVIDERS: ATTEND Urology
DX: C67.9 Malignant neoplasm of bladder, unspecified (principal); N32.89 Other specified disorders of bladder; I25.10 Atherosclerotic heart disease of native coronary artery without angina pectoris; I12.9 Hypertensive chronic kidney disease with stage 1 through stage 4 chronic kidney disease, or unspecified chronic kidney disease; N18.4 Chronic kidney disease, stage 4 (severe); E78.5 Hyperlipidemia, unspecified; K21.9 Gastro-esophageal reflux disease without esophagitis; E03.9 Hypothyroidism, unspecified; E66.9 Obesity, unspecified; Z96.649 Presence of unspecified artificial hip joint; Z87.891 Personal history of nicotine dependence; Z83.3 Family history of diabetes mellitus

== ENCOUNTER → 2017-07-06 | Outpatient (CLI) | payer OTHER ==
[~2017-07-06] MED LIST changes: +ATOR-26 PO; -ATROPINE SULFATE 0.1 MG/ML 5ML SYR IV PRN; -BELLADONNA/OPIUM SUPP 60 MG SUPP PR ONE; +CALC500C3 PEG; -CIPR250T3 PO; -CIPROFLOXACIN / D5W 400 MG IV SCH; -CONRAY 30% 150ML BOTTLE ONE; -FENTANYL CITRATE INJ 50 MCG/1 ML 2 ML VIAL IV PRN; -FENTANYL CITRATE INJ 50 MCG/1 ML 2 ML VIAL ONE; +GABA-113 PO; -KETOROLAC TROMETHAMINE 15 MG/ML VIAL IV. PRN; -LABETALOL HCL IV 5 MG/ML 20ML IV PRN; -LACTATED RINGER'S 1000ML 1,000 ML IV SCH; -LIDOCAINE HCL 2% 2 ML VIAL (20MG/ML) ONE; -MIDAZOLAM HCL 1 MG/ML 2ML VIAL ONE; -ONDANSETRON INJ 2 MG/ML 2 ML VIAL IV PRN; -ONDANSETRON INJ 2 MG/ML 2 ML VIAL ONE; -OXYCODONE/ACETAMINOPHEN 7.5-325 TAB PO PRN; -PHEN-775 PO; -PHENYLEPHRINE 100MCG/ML 5ML SYR ONE; -PROPOFOL IV EMULSION 10 MG/ML 20 ML VIAL IV ONE; -SODIUM CHLORIDE 0.9% 1000ML 1,000 ML IV SCH
== END | disposition home or self-care (01) ==
LOC: C.LABSPEC 17:31
PROVIDERS: ATTEND Urology
DX: C67.9 Malignant neoplasm of bladder, unspecified (principal)

== ENCOUNTER → 2017-07-14 | Outpatient (CLI) | payer OTHER ==
[~2017-07-14] MED LIST changes: -CALC0.2510 PO; -DTR/5 PO; -OXYC7.5T65 PO
[2017-07-14 09:42] LABS: BASO % 0.4 %; BASO ABS # 0.04 K/uL (0-0.2); EOS % 1.9 %; EOS ABS # 0.18 K/uL (0-0.5); IG# 0.12 K/uL (0.00-0.02); LYMPH % 20.4 %; LYMPH ABS # 1.96 K/uL (1.2-3.4); MEAN CELL VOLUME 91.1 fL (80-100); MEAN CORPUSCULAR HEMOGLOBIN 30.4 pg (25-34); MEAN CORPUSCULAR HGB CONC 33.3 g/dl (32-36); MONO % 7.6 %; MONO ABS # 0.73 K/uL (0.11-0.59); NEUT % 68.5 %; PLATELET COUNT 242 K/uL (130-400); RED CELL DISTRIBUTION WIDTH SD 50.6 fL (36.4-46.3); WHITE BLOOD COUNT 9.63 K/uL (4.8-10.8)
[2017-07-14 10:19] LABS: BLOOD UREA NITROGEN 34 mg/dl (7-18); CALCIUM 8.5 mg/dl (8.5-10.1); CARBON DIOXIDE 26 mmol/L (21-32); CREATININE 2.59 mg/dl (0.60-1.40); GLUCOSE 68 mg/dl (70-99); POTASSIUM 3.5 mmol/L (3.5-5.1); SODIUM 141 mmol/L (136-145)
== END | disposition home or self-care (01) ==
LOC: C.LAB 06:51
PROVIDERS: ATTEND Urology
DX: C67.9 Malignant neoplasm of bladder, unspecified (principal)

== ENCOUNTER 2017-07-28 05:09 | Day surgery (SDC) | payer OTHER ==
[2017-07-08 09:30] VITALS: BMI 32.0
[~2017-07-28] VITALS: Ht 175.3 cm; Wt 98.2 kg
[2017-07-28 05:43] VITALS: BP 132/79; PULSE 83; TEMP 36.9; O2SAT 98; Ht 175.3 cm; Wt 98.2 kg
[2017-07-28] MEDS ORDERED: CIPROFLOXACIN / D5W 400 MG IV SCH (06:00)
[2017-07-28] MEDS ORDERED: SODIUM CHLORIDE 0.9% 1000ML 1,000 ML IV SCH (06:00)
[2017-07-28] MEDS ORDERED: FENTANYL CITRATE INJ 50 MCG/1 ML 2 ML VIAL ONE (06:49)
[2017-07-28] MEDS ORDERED: LIDOCAINE HCL 2% 2 ML VIAL (20MG/ML) ONE (06:49)
[2017-07-28] MEDS ORDERED: DEXAMETHASONE SOD INJ 4 MG/ML VIAL ONE (06:49)
[2017-07-28] MEDS ORDERED: ONDANSETRON INJ 2 MG/ML 2 ML VIAL ONE (06:49)
[2017-07-28] MEDS ORDERED: PROPOFOL IV EMULSION 10 MG/ML 20 ML VIAL IV ONE (06:49)
[2017-07-28] MEDS ORDERED: MIDAZOLAM HCL 1 MG/ML 2ML VIAL ONE (06:55)
[2017-07-28] MEDS ORDERED: OXYCODONE/ACETAMINOPHEN 7.5-325 TAB PO PRN (07:00)
[2017-07-28] MEDS ORDERED: PHENAZOPYRIDINE HCL 200 MG TAB PO PRN (07:00)
[2017-07-28] MEDS ORDERED: BELLADONNA/OPIUM SUPP 60 MG SUPP PR PRN (07:00)
[2017-07-28] MEDS ORDERED: CIPR-255 PO (07:07)
[2017-07-28] MEDS ORDERED: PHEN-775 PO (07:07)
[2017-07-28] MEDS ORDERED: OXYC7.5T65 PO (07:07)
[2017-07-28] MEDS ORDERED: TAMS0.4C38 PO (07:07)
--- NOTE | 2017-07-28 07:11 | Discharge Instructions ---
Discharge Instructions Date of Service Jul 28, 2017. Admission Reason for Admission: Malignant Neoplasm Of Bladder Discharge Discharge Diagnosis / Problem: Bladder Cancer HGT1 Discharge Goals Goal(s): Decrease discomfort, Improve function Activity Recommendations Activity Limitations: resume your previous activity Lifting Limitations: gradually increase as tolerated Exercise/Sports Limitations: gradually increase as tolerated . Instructions / Follow-Up Instructions / Follow-Up Catheter will be removed in PACU after draining agent. Call if any fevers or chills. Call if any issues. Multiple medications sent to control discomfort. Monitor output. Call if unable to void. May have pain or blood in urine. Call if severe or other problems. Current Hospital Diet Patient's current hospital diet: Discharge Diet Recommended Diet: Regular Diet Procedures Procedures Performed: TURBT, Medium Mitomycin instillation Pending Studies Studies pending at discharge: no Medical Emergencies . Who to Call and When: Medical Emergencies: If at any time you feel your situation is an emergency, please call 911 immediately. . Non-Emergent Contact Non-Emergency issues call your: Primary Care Provider, Urologist Call Non-Emergent contact if: you have a fever, temperature is above 101, temperature is above 101.5, your pain is not controlled, your pain is worsening , your pain is unusual for you . . "Provider Documentation" section prepared by Teo Diaz. .
[2017-07-28] MEDS ORDERED: BELLADONNA/OPIUM SUPP 60 MG SUPP PR ONE ×2 (07:24→07:43)
[2017-07-28] MEDS ORDERED: MITOMYCIN FOR INJ 40 MG in SYRINGE 40 ML INSTIL SCH (07:30)
[2017-07-28] MEDS ORDERED: ONDANSETRON INJ 2 MG/ML 2 ML VIAL IV PRN (07:45)
[2017-07-28] MEDS ORDERED: FENTANYL CITRATE INJ 50 MCG/1 ML 2 ML VIAL IV PRN (07:45)
[2017-07-28] MEDS ORDERED: ATROPINE SULFATE 0.1 MG/ML 5ML SYR IV PRN (07:45)
[2017-07-28] MEDS ORDERED: EpHEDrine SULFATE INJ 50 MG/ML AMP IV PRN (07:45)
--- NOTE | 2017-07-28 07:57 | [facility] Operative Report ---
Operative Report Operative Date Jul 28, 2017. Pre-Operative Diagnosis HG T1 Bladder Cancer Post-Operative Diagnosis Same Procedure(s) Performed TURBT, Jen Diaz Estimated Blood Loss Minimal Findings Four small lesions on left wall. Tumor/Wound bed resected for deep margins Specimens 1. Tumor Base. 2. Tumor Left lateral wall. Drains 18 Fr Pineda Anesthesia Type General Complication(s) none Disposition Recovery Room / PACU Indications HG T1 UCC. Discussed risks and benefits of reresection for full staging as well as postoperative adjuvant instillation of mitomycin to reduce recurrance. Description of Procedure Patient was consented and brought back to the operating room. Patient was placed under anesthesia in the supine position and moved to the dorsal lithotomy position. Patient was prepped and draped in the regular sterile fashion. A time out was completed. A 30degree Cystoscope was placed into the bladder and the entire bladder was examined. The UO's were identified. Four small papillary lesions were noted at the left lateral wall. The wound bed was assessed from previous resection. No residual tumors were appreciated at the previous site. Mild amount of edema was noted near the previous resection. The resection scope was selected and deep resections were taken from the tumor bed. This was sent for pathologic analysis. The left lateral wall lesions were resected and sent. A total of approx 5.3 cm of tumor/tumor bed was resected. No signs of bladder perforation or exposed fat. The entire bladder was assessed and no major areas of concern were noted. The bladder was flushed. All bleeding was controlled with fulguration. The scope was removed. The 18 Fr Pineda was placed and the balloon elevated. The bladder was completely emptied. The patient was cleaned, aroused from anesthesia, and transferred to the pacu in stable condition having tolerated the procedure well with no complications. Once available, in the PACU, the mitomycin 40mg in 40ml will be placed. The patient will maintain the catheter for 90 mins with mitomycin. It will be drained in the PACU and disposed of following proper chemotherapy disposal protocol. I was present and participated in all aspects of the procedure. The patient will be monitored in the PACU until transferred. I attest to the content of the Intraoperative Record and any orders documented therein. Any exceptions are noted below.
--- NOTE | 2017-07-28 08:48 | Anesthesiology Progress Note ---
Anesthesia Post Op Note Date & Time Jul 28, 2017 at 08:48 Vital Signs Pain Intensity: 1 Vital Signs Past 12 Hours Date Time Temp Pulse Resp B/P (MAP) Pulse Ox O2 Delivery O2 Flow Rate FiO2 07/28/17 08:40 36.5 07/28/17 08:36 131/76 07/28/17 08:35 60 16 97 07/28/17 08:35 60 07/28/17 08:31 119/77 07/28/17 08:30 67 16 99 07/28/17 08:30 65 07/28/17 08:26 125/84 07/28/17 08:25 67 19 07/28/17 08:25 68 19 100 07/28/17 08:21 130/85 07/28/17 08:20 67 10 07/28/17 08:20 67 10 99 07/28/17 08:16 120/81 07/28/17 08:15 66 12 99 07/28/17 08:15 66 12 07/28/17 08:11 129/81 07/28/17 08:10 67 10 99 07/28/17 08:10 63 10 07/28/17 08:09 120/94 07/28/17 08:00 36.5 74 16 129/87 99 Oxymask 7 07/28/17 05:43 36.9 83 20 132/79 (96) 98 Room Air Notes Mental Status: alert / awake / arousable, participated in evaluation Pt Amnestic to Procedure: Yes Nausea / Vomiting: adequately controlled Pain: adequately controlled Airway Patency, RR, SpO2: stable & adequate BP & HR: stable & adequate Hydration State: stable & adequate Anesthetic Complications: no major complications apparent
[2017-07-28 08:50] VITALS: BP 133/66; PULSE 61; TEMP 36.4; O2SAT 94
[2017-07-28] MEDS ORDERED: OXYBUTYNIN CHLORIDE 5 MG TAB PO SCH (09:00)
[2017-07-28 09:20] VITALS: BP 142/84; PULSE 63; TEMP 37; O2SAT 95
[2017-07-28 10:05] VITALS: TEMP 36.3; O2SAT 95
== END 2017-07-28 10:10 | disposition home or self-care (01) ==
LOC: C.ACU 05:09
PROVIDERS: ATTEND Urology
DX: C67.9 Malignant neoplasm of bladder, unspecified (principal); I25.10 Atherosclerotic heart disease of native coronary artery without angina pectoris; E78.5 Hyperlipidemia, unspecified; K21.9 Gastro-esophageal reflux disease without esophagitis; I10 Essential (primary) hypertension; E66.9 Obesity, unspecified; M19.90 Unspecified osteoarthritis, unspecified site; Z83.3 Family history of diabetes mellitus; Z87.891 Personal history of nicotine dependence; Z96.643 Presence of artificial hip joint, bilateral; Z87.442 Personal history of urinary calculi

== ENCOUNTER → 2017-11-26 | Outpatient (CLI) | payer OTHER ==
[~2017-11-26] MED LIST changes: -CALC500C3 PEG; -GABA-113 PO; -PRLSR20 PO
[2017-11-26 08:45] LABS: BASO % 0.5 %; BASO ABS # 0.04 K/uL (0-0.2); EOS % 3.3 %; EOS ABS # 0.27 K/uL (0-0.5); HEMATOCRIT 42.2 % (42-52); HEMOGLOBIN 13.8 g/dL (14.0-18.0); IG# 0.02 K/uL (0.00-0.02); LYMPH % 17.5 %; LYMPH ABS # 1.45 K/uL (1.2-3.4); MEAN CELL VOLUME 87.7 fL (80-100); MEAN CORPUSCULAR HEMOGLOBIN 28.7 pg (25-34); MEAN CORPUSCULAR HGB CONC 32.7 g/dl (32-36); MEAN PLATELET VOLUME 9.6 fL (7.4-10.4); MONO % 8.6 %; MONO ABS # 0.71 K/uL (0.11-0.59); NEUT % 69.9 %; PLATELET COUNT 263 K/uL (130-400); RED CELL DISTRIBUTION WIDTH CV 14.4 % (11.5-14.5); RED CELL DISTRIBUTION WIDTH SD 46.3 fL (36.4-46.3); WHITE BLOOD COUNT 8.29 K/uL (4.8-10.8)
[2017-11-26 08:51] LABS: BLOOD UREA NITROGEN 33 mg/dl (7-18); CALCIUM 8.6 mg/dl (8.5-10.1); CARBON DIOXIDE 24 mmol/L (21-32); CREATININE 3.05 mg/dl (0.60-1.40); GLUCOSE 105 mg/dl (70-99); POTASSIUM 4.2 mmol/L (3.5-5.1); SODIUM 140 mmol/L (136-145)
== END | disposition home or self-care (01) ==
LOC: C.LAB 07:53
PROVIDERS: ATTEND Urology
DX: Z01.812 Encounter for preprocedural laboratory examination (principal)